=== PATIENT | male | born 1940 | race Caucasian/White ===

== ENCOUNTER → 2019-09-22 15:24 | Outpatient (BNVA) | payer MEDICARE, OTHER, SELFPAY | PROVIDERS: Family Provider Family Medicine; Visit Provider Orthopaedic Surgery | DX: M25.561 Pain in right knee (principal); M17.11 Unilateral primary osteoarthritis, right knee | CPT/HCPCS: 73560; 73565 ==

== ENCOUNTER → 2019-11-22 15:15 | Outpatient (BNVA) | payer MEDICARE, OTHER, SELFPAY | PROVIDERS: Family Provider Family Medicine; Referring Provider Orthopaedic Surgery; Visit Provider Internal Medicine | DX: Z11.59 Encounter for screening for other viral diseases (principal) | CPT/HCPCS: 87635 ==

== ENCOUNTER 2019-11-24 11:10 | Inpatient (IN) | payer MEDICARE, OTHER, SELFPAY ==
[2019-11-11 09:26] VITALS: BMI 26.4
--- NOTE | 2019-11-11 09:33 | ECG_ITS ---
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 Measurements Intervals [place] Rate: 68 P: 59 FL: 186 QRS: 14 QRSD: 101 T: 48 QT: 391 QTc: 418 Interpretive Statements SINUS RHYTHM No previous ECG available for comparison Electronically Signed On 11-12-2019 1:37:43 CDT by Tashia Luther M.D. [id number]
--- NOTE | 2019-11-11 10:13 | ANES.PREANE2 ---
Pre-Anesthetic Assessment Pre-Anesthetic Assessment: Height/Weight: Height 1.78 m Weight 83.461 kg Preop Diagnosis: Osteoarthritis right Proposed Procedure: Operation Date: 11/22/19 07:00 Proposed Procedures p Total Knee Arthroplasty/22973 M17.11(Right) - Dillon Martins MD Familial anesthetic complications: None Social: Social History: No alcohol and No tobacco Exam: Pre-Anes Outpt Exam: alert, oriented x 3, clear to auscultation bilaterally and regular rate & rhythm Airway: Cervical ROM: WNL MP: 3 Dentition: Other (missing teeth) Pulmonary: Pulmonary: None reported CV/HEM: CV/HEM: None reported : : None reported Hepatic: Hepatic: None reported GI: GI: None reported Metabolic: Metabolic: None reported Musc/skel: Musc/skel: OA/DJD Neuropsych: Neuropsych: None reported Anesthetic Plan: ASA status: 1 Anesthesia: General and Regional (specify below) Risk of > 500 ml blood loss (7ml/kg in children): Yes, adequate IV access and fluids planned Data Anesthesia Cardiac Studies: No Data to Display
[2019-11-24] VITALS (22 sets, daily range): BP systolic 109–154; BP diastolic 58–83; PULSE 65–113; RESP 10–20; TEMP 36.1–36.7; O2SAT 92–100
[2019-11-24] MEDS: sodium chloride 0.9% 1,000 ML 30 ML IV (06:41)
[2019-11-24] MEDS: midazolam 1 mg/mL INJ 5 ML 5 MG IVP (08:00)
[2019-11-24] MEDS: fentaNYL 50 mcg/mL INJ 2mL 100 MCG IVP (08:00)
--- NOTE | 2019-11-24 08:10 | W.PM.OPSUD ---
Surgery/Procedure H&P Update DATE OF PROCEDURE: November 24, 2019 DATE H&P PERFORMED: 10/26/19 PREOP DIAGNOSIS: Osteoarthritis right PLANNED PROCEDURE: Operation Date: 11/24/19 08:00 Proposed Procedures p Total Knee Arthroplasty/31513 M17.11(Right) - Dillon Martins MD
--- NOTE | 2019-11-24 08:30 | ANES.PROC ---
Anesthesia Procedures Procedure/Date: 11/24/19 Nerve Block ^: Nerve Block 1: Main Anesthesia: general anesthesia Time Out Performed: Yes Consent: requested by attending/covering physician, risks and benefits reviewed and patient agrees to proceed Nerve block location: adductor canal (right) Anesthesia monitors applied: pulse oximetry, EKG, BP cuff and oxygen Nerve block position: supine Anesthetic Used: ropivicaine 0.5% and with decadron (4mg) Amount of anesthesia used (mL): 30 Ultrasound used to: recognize landmarks Nerve Stimulator Used?: No Interscalene/Femoral BLK: 4 stimuplex 21 g needle used for position and inplane approach, visualize local anesthetic spread and no vascular puncture identified Injection: neg aspiration of heme Patient Tolerated Procedure: well and no complications Complications: none
[2019-11-24] MEDS: tranexamic acid 1,000 mg/10mL SDV 1000 MG IRRIGATION (09:25)
[2019-11-24] MEDS: ketorolac 30 mg/mL INJ IM (09:25)
[2019-11-24] MEDS: EPINEPHrine 1 mg/mL INJ XX (09:26)
--- NOTE | 2019-11-24 10:31 | XRR_ITS ---
PROCEDURE INFORMATION: Exam: XR Right Knee Exam date and time: 11/24/2019 10:43 AM Age: 79 years old Clinical indication: Condition or disease; Joint replacement status; Knee; Right; Prior surgery; Surgery date: Post-operative (0-2 days); Additional info: Postop right total knee arthroplasty TECHNIQUE: Imaging protocol: XR Right knee. Views: 1 or 2 views. COMPARISON: CR XR knees AP WB w RT lmt ORTH 09/22/2019 3:30 PM FINDINGS: Bones/joints: Status post total knee arthroplasty, in satisfactory alignment and position. Soft tissues: Postoperative changes. XR/XR knee RT 1-2V [id number] IMPRESSION: Status post total knee arthroplasty.
--- NOTE | 2019-11-24 10:33 | PM.OP ---
Operative Report Date of procedure: November 24, 2019 Pre-op Diagnosis: Osteoarthritis right Post-op diagnosis: same Post-op Findings: Same Procedure Done: Right total knee arthroplasty Implants: Filiberto total knee arthroplasty components were used includin) Size 4 triathalon cruciate retaining femoral component 2) Size 4 Tritanium tibial component 3) 35 mm /10 mm thickness Tritanium asymetric patella 4) Size 4/11mm thickness CR tibial bearing insert Pathology: none sent Surgeon: Dillon Martins Anesthesia: General and Nerve Block (Abductor canal block) Estimated blood loss (mL): 300 Findings: Patient eburnated bone over the medial femoral condyle, medial tibial plateau, patella and trochlea Condition: stable Disposition: PACU Procedure: The patient was taken to the operating room. Patient was given 1 g of tranexamic acid . The above anesthesia provided by the anesthesia service. A timeout was performed. The patient was prepped and draped in the usual fashion with the lower extremity exposed. A anterior incision was made, midline, from a point proximal to the patella to the distal tibial tubercle. The knee was entered through a medial parapatellar approach. The patella could be displaced laterally and the knee flexed. The patellar fat pad was resected to provide better visibility. Retractors were placed medially and laterally adjacent to the tibial plateau. The femoral canal was drilled in line with the longitudinal axis of the femur. Intramedullary femoral guide for used to make a distal femoral cut in 5 degrees of valgus, resecting 8 mm from the more prominent condyle. Next the extra medullary tibial guide was placed in alignment with the longitudinal axis of the tibia. The cutting guides were set to remove just over 9 mm from the high tibial plateau. The proximal tibia was then cut. The femoral measuring guide was then placed over the distal femur. Rotation was verified checking the relationship of the guide to the condyle and the trochlear groove. The femur was measured and cut for the desired femoral component. The desired tibial baseplate was then chosen. A trial reduction with the femur tibial baseplate and polyethylene was done, assuring that the knee was stable throughout full motion. Ligament balancing involved nothing more than a release of the deep medial collateral ligament.The tibia was prepared for the tibial baseplate. Patellar thickness was then measured. The patella was cut removing articular cartilage and prepared for appropriate size patellar button. All surfaces were cleaned with pulsatile lavage. The femur tibia and patella were then press-fit into place. The posterior capsule and collateral ligaments were then injected with a solution of 100 mL of 0.2% ropivacaine, 1 mL of a 1:1000 epinephrine solution, and 30 mg of Toradol. Final polyethylene component was then snapped into place into the tibia. 2 grams of tranexamic acid were applied to the wound. The tourniquet was deflated. The tranxanemic acid was left contact with the knee for 5 minutes before the knee was irrigated with saline. The extensor retinaculum was closed with 1 Ethibond. The subcutaneous tissues were closed with 2-0 Vicryl and the skin was closed with skin cory. A compressive dressing was applied. The patient was taken to recovery room in stable condition.
--- NOTE | 2019-11-24 10:43 | SUR.PHASEI ---
1043 PT HAS SENSATION/MOVEMENT IN R. FOOT, PEDAL PULSE PALPATED, CAP REFILL <3 SEC
[2019-11-24] MEDS: oxyCODONE 5 mg IR Tab/Cap PO ×3 (11:42→22:52)
[2019-11-24] MEDS: CELEcoxib 200 mg Capsule PO (13:16)
[2019-11-24] MEDS: chlorhexidine gluconate 0.12% Btl 473 mL 30 ML MUCOUS MEM ×3 (13:16→23:01)
--- NOTE | 2019-11-24 13:32 | P.PN_ITS ---
Subjective Subjective: Interval history: Patient with minimal pain. Tolerating p.o. liquids. Vitals/I&O/Wt Last Vital Signs Temp 97.0 F L 11/24/19 11:00 Pulse 94 11/24/19 13:11 Resp 16 11/24/19 13:11 BP 146/65 11/24/19 11:00 Pulse Ox 92 11/24/19 13:11 11/23/19 11/24/19 11/24/19 22:59 06:59 14:59 Intake Total 820 / 820 Output Total 800 / 800 Balance Physical Exam Narrative: EXAM NARRATIVE: Right knee dressing clean and dry. Perform straight leg raise peer Urinary Catheter Management^: F: Cath Placed During This Visit: yes Urinary Catheter Date of Insertion: 11/24/19 Urinary Catheter Time of Insertion: 08:50 A&P Assessment and plan (1) Osteoarthritis of right knee: Status: Acute (2) Status post right knee replacement: We will begin to mobilize the patient with therapy today. Anticipate discharge tomorrow. Status: Acute Attestations Medical Necessity Statement*: Will mobilize with therapy today. Anticipate discharge tomorrow. 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
[2019-11-24] MEDS: phenol oral Spray 177 mL 3 SPRAY MUCOUS MEM (17:31)
[2019-11-24] MEDS: cetylpyridinium Lozenge 1 EACH MUCOUS MEM (17:31)
[2019-11-24] MEDS: sennosides-docusate Tablet 2 TAB PO (17:32)
[2019-11-24] MEDS: mupirocin oint 22 gm 1 APPLIC NASAL (17:33)
--- NOTE | 2019-11-24 18:26 | ECG_ITS ---
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 Measurements Intervals [place] Rate: 113 P: 58 UT: 184 QRS: 19 QRSD: 110 T: 12 QT: 347 QTc: 477 Interpretive Statements SINUS TACHYCARDIA INFERIOR MYOCARDIAL INFARCTION [40+ ms Q WAVE AND/OR ST/T ABNORMALITY IN II/aVF], OF INDETERMINATE AGE Compared to ECG 11/11/2019 09:48:12 Myocardial infarct finding now present Sinus rhythm no longer present Electronically Signed On 11-25-2019 0:23:08 CDT by Tashia Luther M.D. [id number]
[2019-11-24] MEDS: enoxaparin 80 mg/0.8 mL Syringe SUBCUT (18:52)
[2019-11-24 19:01] LABS: Basophils % 0.1 %; Hematocrit 41.2 % (42.0-52.0); Hemoglobin 14.1 g/dL (11.7-16.6); Lymphocytes # 0.4 10^3/uL (0.8-4.8); Lymphocytes % 3.3 %; Mean Corpuscular HGB Conc 34.2 g/dL (30.0-36.0); Mean Corpuscular Hemoglobin 32.9 pg (28.0-34.0); Mean Corpuscular Volume 96.3 fL (80-94); Mean Platelet Volume 10.1 fL (7.4-10.4); Monocytes # 0.1 10^3/uL (0.2-0.9); Monocytes % 0.9 %; Neutrophils # 11.45 10^3/uL (1.8-7.7); Neutrophils % 95.4 %; Nucleated Red Blood Cells % 0 %; Platelet Count 179 10^3/cmm (130-400); Red Blood Count 4.28 10^6/uL (4.1-5.3); Red Cell Distribution Width 12.1 % (12.1-15.1)
--- NOTE | 2019-11-24 19:14 | CTR_ITS ---
PROCEDURE INFORMATION: Exam: CT Angiography Chest With Contrast Exam date and time: 11/24/2019 7:54 PM Age: 79 years old Clinical indication: Shortness of breath; Patient HX: Post of knee SX today; Additional info: SOB, R/O pe TECHNIQUE: Imaging protocol: Computed tomographic angiography of the chest with intravenous contrast. 3D rendering: MIP and/or 3D reconstructed images were created by the technologist. Radiation optimization: All CT scans at this facility use at least one of these dose optimization techniques: automated exposure control; mA and/or kV adjustment per patient size (includes targeted exams where dose is matched to clinical indication); or iterative reconstruction. Contrast material: OMNI 350; Contrast volume: 71 ml; Contrast route: INTRAVENOUS (IV); COMPARISON: CR Chest 1 [place] [id number] 05/11/2018 12:11 AM RADIATION DOSE METRICS: Total DLP (mGy-cm): 587.9 FINDINGS: Pulmonary arteries: Suboptimal contrast bolus in the smaller pulmonary artery branches. No filling defects identified within the central or lobar branches. Aorta: Unremarkable. No aortic aneurysm. No aortic dissection. 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 Lungs: Dependent consolidation in both lower lobes and lingula is most likely atelectasis. Pleural space: Unremarkable. No pneumothorax. No pleural effusion. Heart: Unremarkable. No cardiomegaly. No pericardial effusion. Lymph nodes: Subcentimeter mediastinal lymph nodes are most likely reactive. Calcified mediastinal and left hilar lymph nodes. Bones/joints: Unremarkable. No acute fracture. Soft tissues: Unremarkable. CT/CT angio chest PE protcl [id number] IMPRESSION: 1. No pulmonary emboli visualized in the large or medium-sized branches. The smaller artery branches are suboptimally opacified with contrast. 2. Dependent consolidation in both lower lobes is most likely atelectasis. 3. 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 Radiation Dose CTDIVOL = (mGy): DLP = 587.9 (mGy-cm)
[2019-11-24 19:15] LABS: Alanine Aminotransferase 19 U/L (0-41); Albumin Level 4.1 g/dL (3.5-5.2); Alkaline Phosphatase 44 IU/L (40-130); Anion Gap 18.9 (5-19); Aspartate Amino Transferase 20 U/L (0-40); Blood Urea Nitrogen 15 mg/dL (8-23); Calcium 8.7 mg/dL (8.5-10.5); Carbon Dioxide 18 mmol/L (22-29); Chloride 105 mmol/L (98-107); Globulin 2.3 g/dL (1.3-4.6); Glucose 212 mg/dL (65-115); Magnesium 1.8 mg/dL (1.7-2.3); Osmolality Calculated 289 mOsm/kg (285-295); Potassium 3.9 mmol/L (3.5-5.1); Sodium 138 mmol/L (136-145); Total Bilirubin 0.3 mg/dL (0.15-1.2); Total Protein 6.4 g/dL (6.6-8.7)
[2019-11-24 19:16] LABS: Troponin T (5th) Once 9 ng/L (0-15)
--- NOTE | 2019-11-24 19:18 | PM.CONSULT ---
Providers/Reason For Consult Consulting Physican/Specialty*: family medicine Reason for Consult*: chest pain Attending Physician: Dillon Martins MD Primary Care Provider: Paresh Holland History of Present Illness History of Present Illness Iron Naqvi is a 79 year old male who underwent right total knee replacement today for severe osteoarthritis. Surgery went well. Patient was doing well postoperatively. He was up ambulating without significant difficulty. He states that about 20 to 30 minutes ago he was eating supper when he noticed all of a sudden a band of tightness and pain through his lower chest. Also noticed some pain in his right arm and numbness in his right arm. He had some significant shortness of breath associated with this. He has not had any symptoms like this before. Patient was placed on oxygen per nasal cannula and had some relief. Patient states that currently he is feeling about 10 times better. Still having some shortness of breath but much better than before. He has no history of blood clots in the past. No cardiac history. Review of Systems Narrative: General: No chronic fevers or chronic weight changes. HEENT: No acute changes in vision. No acute hearing loss. No new difficulty swallowing. Heart: No new recent issues with coronary disease. Lungs: No history of TB. No chronic lung disease. GI: No history of GI bleeding. No hepatitis. No chronic nausea or vomitting. Renal: No dysuria or frequency. No hematuria Neuro: No acute neurological changes or deficits. Musculoskeletal: No acutely worsening joint pain or swelling. Meds/Allergies Home Medications and Allergies Home Medications Medication Instructions Recorded Confirmed Last Taken Type ascorbic acid (vitamin C) [Vitamin 500 mg PO DAILY 11/11/19 11/11/19 11/17/19 History C] aspirin 81 mg PO DAILY 11/11/19 11/11/19 11/17/19 History calcium carbonate [Calcium 600] 600 mg PO DAILY 11/11/19 11/11/19 11/17/19 History multivitamin 1 cap PO DAILY 11/11/19 11/11/19 11/17/19 History Allergies Allergy/AdvReac Type Severity Reaction Status Date / Time No Known Allergies Allergy Verified 11/11/19 09:25 Current Medications Current Medications Generic Name Dose Route Start Last Admin Trade Name Freq PRN Reason Stop Dose Admin Benzocaine 1 each 11/24/19 17:03 11/24/19 17:31 Cepacol MUCOUS MEM 1 each Q2H PRN Administration SORE THROAT Celecoxib 200 mg 11/24/19 13:30 11/24/19 13:16 Celebrex PO 200 mg Q12H LENORE Administration Chlorhexidine Gluconate 30 ml 11/24/19 13:00 11/24/19 17:35 Perigard MUCOUS MEM 30 ml QID LENORE Administration Enoxaparin Sodium 80 mg 11/24/19 18:45 11/24/19 18:52 Lovenox SUBCUT 80 mg Q12H LENORE Administration Cefazolin Sodium/Dextrose 2 gm in 50 mls @ 100 mls/hr 11/24/19 16:30 11/24/19 17:32 Kefzol IV 11/25/19 08:59 Infused Q8H LENORE Infusion Protocol Mupirocin 1 applic 11/24/19 18:00 11/24/19 17:33 Bactroban NASAL 11/29/19 17:59 1 applic BID LENORE Administration Protocol Oxycodone HCl 5 mg 11/24/19 11:20 11/24/19 16:35 Oxycodone Ir PO 5 mg Q4H PRN Administration MODERATE PAIN Phenol 3 spray 11/24/19 17:03 11/24/19 17:31 Phenaseptic MUCOUS MEM 3 spray Q2H PRN Administration SORE THROAT Senna/Docusate Sodium 2 tab 11/24/19 18:00 11/24/19 17:32 Senna-S PO 2 tab BID LENORE Administration PFSH Acute PFSH: Medical History (Updated 11/24/19 @ 20:22 by Paresh Holland MD) 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 Surgical History (Updated 11/24/19 @ 20:22 by Paresh Holland MD) History of total left knee replacement (TKR) Family History (Updated 11/24/19 @ 20:24 by Paresh Holland MD) Father CAD (coronary artery disease) Social History (Updated 11/24/19 @ 20:26 by Paresh Holland MD) Smoking and tobacco status: former smoker Alcohol intake: never Marital status: Current occupation: [employer] Vitals/I&O/Wt Last Vital Signs Temp 97.9 F 11/24/19 17:47 Pulse 113 H 11/24/19 18:26 Resp 16 11/24/19 17:47 BP 116/65 11/24/19 17:47 Pulse Ox 93 11/24/19 17:47 11/24/19 11/24/19 11/24/19 06:59 14:59 22:59 Intake Total 820 / 870 50 / 870 Output Total 800 / 1200 400 / 1200 Balance 20 / -330 -350 / -330 Physical Exam Narrative: EXAM NARRATIVE: General: No acute distress, Alert. Well nourished. HEENT: PERRLA, EOMI. vision grossly normal. Throat clear. Neck: supple, no adenopathy. Heart: Regular rate and rhythm. No murmurs, rubs or gallops. Normal capillary refill. Lungs: Clear to auscultation. No wheezes, rhonchi or rales. Patient states that he had been doing 3-4000 on his incentive spirometry. I had him go ahead and use it again and he was struggling to get 2500. Abdomen: Positive bowel sounds. Non-tender, non-distended. No hepatosplenomegaly. No gaurding. Extremities: No clubbing, cyanosis, or edema. Negative Bo's no pain in his calves to palpation. Urinary Catheter Management^: F: Cath Placed During This Visit: yes Urinary Catheter Date of Insertion: 11/24/19 Urinary Catheter Time of Insertion: 08:50 A&P Assessment and plan (1) Chest pain: -Patient has sudden onset of chest pain and hypoxia this evening. Most likely things in his differential are pulmonary embolism versus an acute myocardial infarction. EKG does show some ST segment depressions. However, his clinical picture favors more of a pulmonary embolism. He has tachycardia and chest pain and dyspnea consistent with this. He also has some hypoxia and decreased incentive spirometry. Doing better on a couple liters of oxygen. -At this time we will go ahead and proceed with a CTA of the chest. He is received Lovenox therapeutic dosing. We will also give him a full dose aspirin. Have respiratory therapy to assess and treat. Continue with oxygen. If his condition deteriorates or the CTA shows a significant PE we will transfer him to the ICU for closer monitoring. We are getting a stat troponin and if this is positive we will consult cardiology. Status: Acute (2) Hypoxia: Status: Acute (3) Status post right knee replacement: Status: Acute (4) Osteoarthritis of right knee: Status: Acute Consult Attestations Medical Necessity Statement: 79 yo with chest pain requiring continued inpatient treatment. 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
--- NOTE | 2019-11-24 19:32 | PC.NURSE ---
Summary At 1825 pt c/o of right to left chest pain with pain in right arm with pain at a 7-8. VS was 118Hr 95%on RA, B/P was 143/75.Tried calling Dr Martins whose is the admitting Dr but was unable to get ahold of him, so I left a message. I called the Ortho. Dr automotive fuel systems converter, Dr Monteiro, who had me order stat EKG and consult hospitalist automotive fuel systems converter. I called Dr Interiano who came to the floor and told me the patient was Dr Nowak. I called Dr Holland the info regarding the pt and that we were getting a EKG at this time. He had me call him with results and in the mean time Dr Interiano thought possible PE. Dr Holland said he was coming over to see Pt and order lab Trop stat. Jaydon had Charge nurse Herman put some orders in and meds. Dr Holland saw Pt and talked with him and his .
[2019-11-24] MEDS: aspirin 81 mg Chew Tablet 324 MG PO (20:05)
[2019-11-24] MEDS: iohexol 350 mg/mL 100 mL Btl IV (20:18)
[2019-11-24 21:04] LABS: Troponin 5 2HR 10.57 ng/L (0-15)
[2019-11-24 21:12] LABS: Troponin 5 2HR Delta 1.57 ABS# (0-10)
--- NOTE | 2019-11-24 22:18 | ECG_ITS ---
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 Measurements Intervals [place] Rate: 108 P: 53 MN: 185 QRS: 22 QRSD: 103 T: 38 QT: 351 QTc: 471 Interpretive Statements SINUS TACHYCARDIA ABNORMAL RHYTHM ECG Compared to ECG 11/24/2019 19:27:49 Myocardial infarct finding no longer present Electronically Signed On 11-25-2019 0:30:49 CDT by Tashia Luther M.D. [email or web address].Symphogenpatient's choice medical center of smith countyApplication Developments plcblanchard valley health system bluffton hospitalSabrix/store/OM/[id number]
[2019-11-24] MEDS: nitroglycerin 0.4 mg sublingual Tablet SUBLINGUAL (22:52)
[2019-11-25] VITALS (10 sets, daily range): BP systolic 97–147; BP diastolic 57–73; PULSE 73–108; RESP 16–23; TEMP 36.3–37.2; O2SAT 90–96
--- NOTE | 2019-11-25 00:51 | PC.NURSE ---
Pt complained of chest pain, MD aware of this, administered oxycodone IR and nitro sublingual, one nitro resolved chest pain, morphine was offered in place of oxy IR, but patient refused due to fear of the med, no other complaints voiced at this time, will continue to monitor.
[2019-11-25 01:24] LABS: Troponin 5 6HR 15.23 ng/L (0-15)
[2019-11-25] MEDS: sodium chloride 0.9% 1,000 ML 80 ML IV (01:33)
[2019-11-25] MEDS: CELEcoxib 200 mg Capsule PO ×2 (01:34→13:30)
--- NOTE | 2019-11-25 01:51 | PC.NURSE ---
Educated Pt and on importance of using his incentive spirometer, how to use it properly and the frequency of when to use it. RN also educated Pt on being able to ambulate to prevent pneumonia.
[2019-11-25 02:01] LABS: Troponin 5 6HR Delta 6.23 ng/L (0-12)
--- NOTE | 2019-11-25 02:18 | ECG_ITS ---
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 Measurements Intervals [place] Rate: 81 P: 57 VA: 189 QRS: 21 QRSD: 95 T: 53 QT: 378 QTc: 440 Interpretive Statements SINUS RHYTHM Compared to ECG 11/24/2019 22:29:33 Sinus tachycardia no longer present Electronically Signed On 11-26-2019 16:07:38 CDT by Leroy Yoder M.D. [email or web address] GroupSayHello [email or web address] general [email or web address] center.itzat/store/OM/[id number]
[2019-11-25] MEDS: oxyCODONE 5 mg IR Tab/Cap PO ×3 (03:05→17:24)
[2019-11-25 03:43] LABS: Hemoglobin 12.2 g/dL (11.7-16.6)
--- NOTE | 2019-11-25 06:36 | US_ITS ---
WS: [id number] ULTRASOUND RENAL TECHNIQUE: Ultrasound examination of both kidneys. CLINICAL INFORMATION: hematuria COMPARISON: None. FINDINGS: RIGHT: Right kidney is normal in size and appearance. Echogenicity: Normal. Cortical thickness: 1.1 cm; Normal. Hydronephrosis: None. Perinephric fluid: None. Right kidney measures: 10.0 cm x 4.6 cm x 5.3 cm. LEFT: Left kidney is normal in size and appearance. Echogenicity: Normal. Cortical thickness: 1.2 cm; Normal. Hydronephrosis: None. Perinephric fluid: None. Left kidney measures: 10.7 cm x 4.2 cm x 5.6 cm. Normal visualized aorta. Nodular enlarged prostate with diffuse bladder wall thickening. This can be seen with chronic cystitis or bladder outlet obstruction. Prostate measures 3.3 x 3.3 CM. US/US renal BI with bladder IMPRESSION: 1. No hydronephrosis in either kidney. 2. Bladder appears normal. Haro removed. 3. Enlarged nodular prostate measuring 3.3 x 3.3 cm. Recommend correlation PSA . 4. Diffuse bladder wall thickening can be seen with chronic cystitis or bladde r outlet obstruction.
--- NOTE | 2019-11-25 06:37 | USCV_ITS ---
Iron Naqvi Age: 79 Gender: M : 1940 Exam Date: 11/25/2019 07:36 Ordering Phys: Paresh Holland MD Technologist: Oracio Shannon Exam Location: [facility] [place] Indication: MURMUR, chest pain BP: 126 / 76 HR: 79 Rhythm: Sinus Technical Quality: Adequate MEASUREMENTS (Male / Female) Normal Values 2D ECHO LV Diastolic Diameter PLAX 4.9 cm 4.2 - 5.9 / 3.9 - 5.3 cm LV Systolic Diameter PLAX 2.8 cm IVS Diastolic Thickness 1.1 cm 0.6 - 1.0 / 0.6 - 0.9 cm IVS Systolic Thickness 1.3 cm LVPW Diastolic Thickness 1.0 cm 0.6 - 1.0 / 0.6 - 0.9 cm LVPW Systolic Thickness 1.4 cm LVOT Diameter 2.0 cm LV Ejection Fraction 2D Teich 74.1 % LV Ejection Fraction MOD 2C 67.3 % LV Ejection Fraction 2C AL 67.9 % LA Diameter 4.4 cm LA Width 3.8 cm LA Height 4.3 cm RA Width 3.1 cm RA Height 3.7 cm M-MODE LV Diastolic Diameter MM 5.6 cm 4.2 - 5.9 / 3.9 - 5.3 cm LV Systolic Diameter MM 3.5 cm LV Ejection Fraction MM Teich 67.5 % IVS Diastolic Thickness MM 1.0 cm 0.6 - 1.0 / 0.6 - 0.9 cm IVS Systolic Thickness MM 1.5 cm LVPW Diastolic Thickness MM 1.2 cm 0.6 - 1.0 / 0.6 - 0.9 cm LVPW Systolic Thickness MM 1.5 cm RV Diastolic Diameter MM 1.1 cm Aortic Annulus Diameter 3.6 cm LA Ao Ratio MM 1.2 MV E Point Septal Separation 0.8 cm DOPPLER AV Peak Velocity 263.0 cm/s MV Area PHT 5.0 cm squared Mitral E to A Ratio 1.0 MV E' Velocity 81.0 cm/s TR Peak Velocity 209.0 cm/s TR Peak Gradient 17.5 mmHg TV Peak E Velocity 109.0 cm/s Right Atrial Pressure 3.0 mmHg Pulmonary Artery Systolic Pressu 20.5 mmHg PV Peak Velocity 125.0 cm/s FINDINGS Left Ventricle Normal left ventricular cavity size. There is possibly some basal septal hypertrophy normal left ventricular systolic function. Left ventricular ejection fraction is estimated at 65%. No regional wall motion abnormalities. Normal mitral inflow pattern. Right Ventricle Normal right ventricular size and systolic function. Right ventricular systolic pressure 20.5 mmHg. Right Atrium Normal right atrial size. Left Atrium Normal left atrial size. Mitral Valve There is systolic anterior motion of anterior mitral valve leaflet with eccentric posteriorly directed mild to moderate mitral valve regurgitation. No mitral valve stenosis. Aortic Valve Structurally normal trileaflet aortic valve. No aortic valve stenosis. Peak resting left ventricular outflow tract gradient of 28 mmHg. Trace aortic valve regurgitation. Tricuspid Valve Structurally normal tricuspid valve. Trace tricuspid valve regurgitation. Pulmonic Valve Structurally normal pulmonic valve. No pulmonary valve stenosis. Trace pulmonary valve regurgitation. Pericardium No pericardial effusion. Aorta Normal-sized aortic root. CONCLUSIONS 1. Normal left ventricular cavity size. There is possibly some basal septal hypertrophy. Normal left ventricular systolic function. Left ventricular ejection fraction is estimated at 65%. No regional wall motion abnormalities. Normal mitral inflow pattern. 2. There is systolic anterior motion of anterior mitral valve leaflet with eccentric posteriorly directed mild to moderate mitral valve regurgitation. 3. Peak resting left ventricular outflow tract gradient of 28 mmHg. 4. Normal pulmonary artery pressure. 5. No prior similar studies to compare. Carmen Krishna MD (Electronically Signed) Final Date: 25 November 2019 13:21 S
--- NOTE | 2019-11-25 06:42 | P.PN_ITS ---
Subjective Subjective: Interval history: Patient seems of done well overnight. He is not had any more significant chest pain. He still somewhat hypoxic requiring 2 L of oxygen. Still bit short of breath. No fevers or chills. No cough. No significant sputum. Vitals/I&O/Wt Last Vital Signs Temp 97.4 F L 11/25/19 04:00 Pulse 86 11/25/19 04:00 Resp 18 11/25/19 04:00 BP 120/62 11/25/19 04:00 Pulse Ox 90 11/25/19 04:00 11/24/19 11/24/19 11/25/19 14:59 22:59 06:59 Intake Total 820 / 870 50 / 870 Output Total 800 / 1700 400 / 1700 500 / 1700 Balance 20 / -830 -350 / -830 -500 / -830 Physical Exam Narrative: EXAM NARRATIVE: General: No acute distress, Alert. Well nourished. Heart: Regular rate and rhythm. No murmurs, rubs or gallops. Normal capillary refill. Lungs: Clear to auscultation. No wheezes, rhonchi or rales. Abdomen: Positive bowel sounds. Non-tender, non-distended. No hepatosplenomegaly. No gaurding. Extremities: No clubbing, cyanosis, or edema. Negative Bo's Urinary Catheter Management^: F: Cath Placed During This Visit: yes Urinary Catheter Date of Insertion: 11/24/19 Urinary Catheter Time of Insertion: 08:50 Data : 11/25/19 03:02 11/24/19 18:54 A&P Assessment and plan (1) Hypoxia: Etiology for this is still little unclear. It was acute on onset. CTA was negative for PE but was not able to see the smaller vessels very clearly. I will plan to review the CTA with radiology later today. This time he does seem stable. He does have atelectasis which we will continue working on incentive spirometry for. I cannot see this being the cause of his acute decompensation. Status: Acute (2) Chest pain: Still unclear on the etiology of this as well. Small PE still in the differential. Troponins have technically been negative. And his repeat EKGs have normalized. He did have some upsloping ST depression on his initial EKG. We will get a repeat fourth troponin this morning. Go ahead and proceed with echocardiogram. Plan to consult cardiology this morning. 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 This episode of chest pain did happen after he was eating. Possible that that may be the cause of his chest pain. It is hard for me to explain his hypoxia and shortness of breath from this though. Status: Acute (3) Hematuria: This most likely was precipitated by the high dose of Lovenox. We will go ahead and get an ultrasound of the kidneys and bladder to rule out other pathology. This seems to be clearing some this morning. I am okay with removing catheter this morning if okay with Ortho. 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 Status: Acute (5) Status post right knee replacement: Status: Acute Additional A&P Information Doing well from this standpoint. Postoperative care per Ortho. Attestations Medical Necessity Statement*: Patient is 79-year-old gentleman postop day #1 for total knee replacement with chest pain and hypoxia requiring continued monitoring and inpatient testing and treatment. 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
[2019-11-25 07:23] LABS: Basophils % 0.1 %; Hematocrit 34.7 % (42.0-52.0); Hemoglobin 11.9 g/dL (11.7-16.6); Lymphocytes % 6.7 %; Mean Corpuscular HGB Conc 34.3 g/dL (30.0-36.0); Mean Corpuscular Hemoglobin 33.1 pg (28.0-34.0); Mean Corpuscular Volume 96.4 fL (80-94); Monocytes # 1.1 10^3/uL (0.2-0.9); Monocytes % 7.5 %; Neutrophils # 12.95 10^3/uL (1.8-7.7); Neutrophils % 85.2 %; Nucleated Red Blood Cells % 0 %; Platelet Count 152 10^3/cmm (130-400); Red Cell Distribution Width 12.2 % (12.1-15.1); White Blood Count 15.2 10^3/uL (4.0-10.0)
[2019-11-25 07:42] LABS: Alanine Aminotransferase 15 U/L (0-41); Albumin Level 3.5 g/dL (3.5-5.2); Alkaline Phosphatase 42 IU/L (40-130); Anion Gap 12.3 (5-19); Aspartate Amino Transferase 17 U/L (0-40); Blood Urea Nitrogen 16 mg/dL (8-23); Calcium 8.2 mg/dL (8.5-10.5); Carbon Dioxide 21 mmol/L (22-29); Chloride 107 mmol/L (98-107); Glucose 151 mg/dL (65-115); Lipase 16 U/L (13-60); Osmolality Calculated 281 mOsm/kg (285-295); Potassium 4.3 mmol/L (3.5-5.1); Sodium 136 mmol/L (136-145); Total Bilirubin 0.2 mg/dL (0.15-1.2); Total Protein 5.5 g/dL (6.6-8.7)
[2019-11-25 07:43] LABS: Troponin T (5th) Once 18 ng/L (0-15)
--- NOTE | 2019-11-25 08:00 | PM.PN ---
Subjective Subjective: Interval history: Patient feels better this morning. No further chest pain. Shortness of breath improved. Vitals/I&O/Wt Last Vital Signs Temp 97.4 F L 11/25/19 04:00 Pulse 86 11/25/19 04:00 Resp 18 11/25/19 04:00 BP 120/62 11/25/19 04:00 Pulse Ox 90 11/25/19 04:00 11/24/19 11/25/19 11/25/19 22:59 06:59 14:59 Intake Total 50 / 870 50 / 920 Output Total 400 / 1200 500 / 1700 Balance -350 / -330 -450 / -780 Physical Exam Narrative: EXAM NARRATIVE: Right knee dressing clean and dry. Calves soft. Urinary Catheter Management^: F: Cath Placed During This Visit: yes Urinary Catheter Date of Insertion: 11/24/19 Urinary Catheter Time of Insertion: 08:50 Data : 11/25/19 07:11 11/25/19 07:11 A&P Assessment and plan (1) Status post right knee replacement: Status: Acute Additional A&P Information Patient doing much better. We will continue to mobilize with therapy. We will wait for final medical disposition before considering discharge Attestations Medical Necessity Statement*: Discharge as per medicine Coding Level of Care Code Acute Residential Nurse for Ann Ledezma Diagnoses Status post right knee replacement Z96.651
--- NOTE | 2019-11-25 08:01 | PM.CONSULT ---
Providers/Reason For Consult Consulting Physican/Specialty*: Dr. Krishna, Cardiology Reason for Consult*: Lower chest pain Attending Physician: Dillon Martins MD Primary Care Provider: LEX Reynaga History of Present Illness History of Present Illness Iron Naqvi is a 79 year old male with no significant medical problems and not on any medications. He underwent elective right total knee replacement yesterday for severe osteoarthritis without any problems in immediate post op period. Patient was doing well postoperatively. Around quarter to six, he was eating supper when he starting having sudden onset lower chest/ upper abdominal pain described as a band of tightness . He also noticed some pain in his right arm and numbness in his right arm. This episode was associated with shortness of breath. This episode lasted for about 10 minutes and and then another episode though less intense while eating ice cream and drinking milk at night and this episode was focussed more . He has not had any symptoms like this before. Patient was placed on oxygen per nasal cannula and had some relief. He is currently feeling much better. No PE on CT scan of chest. He is former smoker quit more than 40 years back. 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 His was at bedside at the time. Review of Systems Const: Denies: fever(s), chills, change in appetite, change in weight, fatigue or malaise ENMT: Denies: throat pain, nasal congestion, epistaxis or post nasal drip Card: Denies: palpitations, irregular heart rhythm, edema, lightheadedness, syncope, dyspnea on exertion, orthopnea or leg pain with exertion Resp: Denies: productive cough, wheezing or hemoptysis GI: Denies: abdominal pain, nausea, vomiting, hematemesis, heartburn, diarrhea, constipation, change in bowel habits, hematochezia or melena : Denies: dysuria, oliguria or hematuria Musc: Denies: extremity swelling Skin/Breast: Denies: rash or erythema Neuro: Denies: numbness in extremities, weakness in extremities, lack of coordination, difficulty walking, dizziness, vertigo or confusion Psych: Denies: anxiety, depression or irritability Endo: Denies: tired all the time, cold intolerance or heat intolerance Joshua/Lymph: Denies: easy bruising, easy bleeding, petechiae or purpura Meds/Allergies Home Medications and Allergies Home Medications Medication Instructions Recorded Confirmed Last Taken Type ascorbic acid (vitamin C) [Vitamin 500 mg PO DAILY 11/11/19 11/11/19 11/17/19 History C] aspirin 81 mg PO DAILY 11/11/19 11/11/19 11/17/19 History calcium carbonate [Calcium 600] 600 mg PO DAILY 11/11/19 11/11/19 11/17/19 History multivitamin 1 cap PO DAILY 11/11/19 11/11/19 11/17/19 History Allergies Allergy/AdvReac Type Severity Reaction Status Date / Time No Known Allergies Allergy Verified 11/11/19 09:25 Current Medications Current Medications Generic Name Dose Route Start Last Admin Trade Name Freq PRN Reason Stop Dose Admin Benzocaine 1 each 11/24/19 17:03 11/24/19 17:31 Cepacol MUCOUS MEM 1 each Q2H PRN Administration SORE THROAT Celecoxib 200 mg 11/24/19 13:30 11/25/19 01:34 Celebrex PO 200 mg Q12H LENORE Administration Chlorhexidine Gluconate 30 ml 11/24/19 13:00 11/24/19 23:01 Perigard MUCOUS MEM 30 ml QID LENORE Administration Enoxaparin Sodium 80 mg 11/24/19 18:45 11/24/19 18:52 Lovenox SUBCUT 80 mg Q12H LENORE Administration Sodium Chloride 1,000 mls @ 80 mls/hr 11/24/19 11:20 11/25/19 01:33 Sodium Chloride 0.9% IV 80 mls/hr .[id number] LENORE Administration Cefazolin Sodium/Dextrose 2 gm in 50 mls @ 100 mls/hr 11/24/19 16:30 11/25/19 02:03 Kefzol IV 11/25/19 08:59 Infused Q8H LENORE Infusion Protocol Mupirocin 1 applic 11/24/19 18:00 11/24/19 17:33 Bactroban NASAL 11/29/19 17:59 1 applic BID LENORE Administration Protocol Nitroglycerin 0.4 mg 11/24/19 22:33 11/24/19 22:52 Nitrostat SUBLINGUAL 1 tab Q5M PRN Administration CHEST PAIN Oxycodone HCl 5 mg 11/24/19 11:20 11/25/19 03:05 Oxycodone Ir PO 5 mg Q4H PRN Administration MODERATE PAIN Phenol 3 spray 11/24/19 17:03 11/24/19 17:31 Phenaseptic MUCOUS MEM 3 spray Q2H PRN Administration SORE THROAT Senna/Docusate Sodium 2 tab 11/24/19 18:00 11/24/19 17:32 Senna-S PO 2 tab BID LENORE Administration PFSH Acute PFSH: Medical History (Updated 11/25/19 @ 21:03 by Carmen Krishna MD) 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 Surgical History (Updated 11/24/19 @ 20:22 by Paresh Holland MD) History of total left knee replacement (TKR) Family History (Updated 11/24/19 @ 20:24 by Paresh Holland MD) Father CAD (coronary artery disease) Social History (Updated 11/24/19 @ 20:26 by Paresh Holland MD) Smoking and tobacco status: former smoker Alcohol intake: never Marital status: Current occupation: [employer] Vitals/I&O/Wt Last Vital Signs Temp 97.4 F L 11/25/19 04:00 Pulse 86 11/25/19 04:00 Resp 18 11/25/19 04:00 BP 120/62 11/25/19 04:00 Pulse Ox 90 11/25/19 04:00 11/24/19 11/25/19 11/25/19 22:59 06:59 14:59 Intake Total 50 / 870 50 / 920 Output Total 400 / 1200 500 / 1700 Balance -350 / -330 -450 / -780 Physical Exam Const: COMMON NORMALS: no acute distress, average body habitus, patient oriented x3, alert and well nourished GENERAL APPEARANCE: cooperative, comfortable, well kempt and well developed ORIENTATION/CONSCIOUSNESS: Yes oriented to person, Yes oriented to place and Yes oriented to time HENMT: COMMON NORMALS: normocephalic, atraumatic, hearing grossly normal bilaterally and Normal external nose present HEAD & SCALP: normocephalic and atraumatic FACE & SINUS: face symmetric NOSE: Normal external nose present Eye: COMMON NORMALS: Equal, round and reactive pupils present, EOMs intact bilaterally and conjunctivae normal ALIGNMENT: Yes alignment normal CONJUNCTIVA: Yes conjunctivae normal SCLERA: sclerae normal PUPIL: Yes Equal, round and reactive pupils present Neck/C-Spine: COMMON NORMALS: supple and no JVD; negative for No carotid bruits GENERAL: Yes trachea midline Chest: COMMONS NORMALS: normal inspection of the chest CHEST: Yes Symmetrical chest wall rise and No tenderness Resp: COMMON NORMALS: normal respiratory effort, No use of accessory muscles and clear to auscultation bilaterally AUSCULTATION: clear to auscultation bilaterally, no crackles, no rales, no rhonchi and no wheezes Cardio: COMMON NORMALS: no JVD, regular rate, regular rhythm, S1 normal heart sound present, S2 normal heart sound present and Peripheral pulses 2+ throughout; negative for No gallops present (Cardio) JUGULAR VENOUS DISTENTION: no JVD PALPATION: normal PMI, no heave, no palpable S3 and no thrill RATE: regular rate RHYTHM: regular rhythm HEART SOUNDS: S1 normal heart sound present, S2 normal heart sound present, no gallops and no murmurs BRUITS: no carotid bruits PERIPHERAL PULSES: Peripheral pulses 2+ throughout GI: COMMON NORMALS: Normal to inspection, nondistended, normoactive bowel sounds present, Soft to palpation and non-tender PALPATION: Yes Soft to palpation RECTAL EXAM: Yes deferred Extremity: COMMON NORMALS: no pedal edema NARRATIVE EXTREMITY EXAM: Right knee dressing+, left knee incision of previous Sx Neuro: COMMON NORMALS: patient oriented x3 and no focal motor deficits SENSORIUM/ORIENTATION: Yes alert, Yes oriented to person, Yes oriented to place and Yes oriented to time CRANIAL NERVES: Yes CN normal except as noted Psych: COMMON NORMALS: Normal thought process present APPEARANCE: Yes well kempt MOOD & AFFECT: Yes euthymic mood THOUGHT PROCESS: Normal thought process present THOUGHT CONTENT: Yes Normal thought content present ATTENTION/CONCENTRATION: Yes attention grossly intact MEMORY/COGNITION: Yes memory grossly intact INSIGHT: Good insight present (Psych) JUDGEMENT: Good judgement present (Psych) Urinary Catheter Management^: F: Cath Placed During This Visit: yes Urinary Catheter Date of Insertion: 11/24/19 Urinary Catheter Time of Insertion: 08:50 Data Labs: Other Labs: Laboratory Tests 11/24/19 11/24/19 11/24/19 18:54 18:54 20:42 Magnesium 1.8 Troponin T Gen 5 n g/L 9 Troponin T 120 Min [place] 10.57 Troponin T Hi Sens 6Hr 11/25/19 11/25/19 00:45 07:11 Magnesium Troponin T Gen 5 n g/L 18 H Troponin T 120 Min [place] Troponin T Hi Sens 6Hr 15.23 H Imaging^: Echo: I personally reviewed and interpreted this imaging study as follows: My impression: CONCLUSIONS 1. Normal left ventricular cavity size. There is possibly some basal septal hypertrophy. Normal left ventricular systolic function. Left ventricular ejection fraction is estimated at 65%. No regional wall motion abnormalities. Normal mitral inflow pattern. 2. There is systolic anterior motion of anterior mitral valve leaflet with eccentric posteriorly directed mild to moderate mitral valve regurgitation. 3. Peak resting left ventricular outflow tract gradient of 28 mmHg. 4. Normal pulmonary artery pressure. 5. No prior similar studies to compare. Other Imaging: Radiologist's impression: Renal ultrasound IMPRESSION: 1. No hydronephrosis in either kidney. 2. Bladder appears normal. Haro removed. 3. Enlarged nodular prostate measuring 3.3 x 3.3 cm. Recommend correlation PSA. 4. Diffuse bladder wall thickening can be seen with chronic cystitis or bladder outlet obstruction. CTA chest IMPRESSION: 1. No pulmonary emboli visualized in the large or medium-sized branches. The smaller artery branches are suboptimally opacified with contrast. 2. Dependent consolidation in both lower lobes is most likely atelectasis. 3. 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 EKG^: EKG 1: I personally reviewed and interpreted this EKG as follows: My Interpretation: Sinus tachycardia, q wave in III and aVF with T wave inversion in lead III. New as compared to old EKG. These changes resolve on serial EKG's. A&P Assessment and plan (1) Chest pain: Lower Chest pain/upper abdominal pain -CAD risk factor of age and sex. No prior stress test. -Plan for stress test in morning. 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 I am not sure if this would cause sudden onset post prandial pain. Status: Acute Additional A&P Information Mild to moderate eccentric posterior MR Thank you for allowing me to participate in patient's care. Plaese feel free to call with questions or concerns. 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
[2019-11-25] MEDS: ascorbic acid 500 mg Tablet PO (08:05)
[2019-11-25] MEDS: sennosides-docusate Tablet 2 TAB PO ×2 (08:05→17:24)
[2019-11-25] MEDS: chlorhexidine gluconate 0.12% Btl 473 mL 30 ML MUCOUS MEM ×4 (08:06→20:43)
[2019-11-25] MEDS: mupirocin oint 22 gm 1 APPLIC NASAL ×2 (08:06→17:26)
[2019-11-25] MEDS: aspirin 81 mg Chew Tablet PO (08:06)
--- NOTE | 2019-11-25 09:19 | ANE.PACU2 ---
Inpatient post-anesthesia follow up: Airway intact: Yes Vital signs: Temperature 97.6 F Pulse Rate 73 Respiratory Rate 18 Blood Pressure 146/67 Pulse Oximetry 93 Oxygen Delivery Me thod Nasal Cannula Oxygen Flow Rate 2 Fraction of Inspir ed Oxygen Hydration adequate: Yes Nausea and vomiting: No Pain level: 7 Pain level: increased pain after having walked around, otherwise pain scores 1-2 Mental status: Baseline
--- NOTE | 2019-11-25 11:10 | PC.CHAP ---
Pastoral Care Encounter/Spiritual Assessment Type of Contact [] Declined trading analyst visit [] Patient/Family/Request visit [] Outpatient visit [] Follow-up visit [] Physician referral [] Code/Alert [x] Routine visit [] Staff referral [] Actively dying [] Patient sleeping [] Family support [] [] Out of room [] Palliative care [] [] Receiving care in room [] Pre-surgical visit [] Trauma [] Long length of stay [] ICU visit [] Other: Relational/Emotional Strength [x] Patient feels connected with others/family/visitors/staff [] Distress [] Loneliness/isolation [] Abandonment Spirituality of Patient [x] Person of Kala [x] Attends Mosque of their Kala [x] Believes in Prayer [x] Reads Bible or Gnosticist materials [] There are Spiritual issues to be addressed Energy Trader Interventions [x] Prayer [x] Active listening [x] Non-anxious presence [x] Spiritual/emotional support [] Crisis/trauma care [] Spiritual counseling [] Bereavement support [] Provided bereavement packet [] Provided Bible/devotional materials [] Provided toy/stuffed animal, coloring book to patient or family member [] Provided Communion [] Anointing/[place] [] Salvation [x] Completed spiritual assessment [] Other: Impact on Illness or Injury [] Angry [] Fearful [] Anxious [] Often cries [] Exhaustion [] Unable to work [] Unable to attend uatsdin [] Unable to walk/stand [] Unable to read [] Unable to drive [] Unable to eat/drink [] Unable to sleep [] Unable to be with family [] Patient intubated [x] Other: Summary Patient was in attendance with his Shyann. 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 Time spent with patient 10 minutes
--- NOTE | 2019-11-25 13:35 | USCV_ITS ---
Iron Naqvi Age: 79 Gender: M : 1940 Exam Date: 11/25/2019 14:21 Ordering Phys: Paresh Holland MD Technologist: Aparna Alfonso Exam Location: [facility] [place] Indication: POSSIBLE PE HISTORY: Pulmonary embolism. PROCEDURES: Venous duplex imaging was performed in bilateral lower extremities. The following venous structures were evaluated: common femoral vein, profunda vein, proximal portion of the greater saphenous vein, superficial femoral vein, and the popliteal vein. In addition, the posterior tibial and peroneal trunk were evaluated. Serial compression, augmentation maneuvers, and spectral Doppler flow evaluation were performed. FINDINGS: Normal 2-D Doppler and augmentation and compressibility throughout the lower extremity venous structures. Additional imaging through the proximal calf veins also reveals no thrombus. Limited evaluation of the greater saphenous vein is patent with no thrombus.. CONCLUSIONS No evidence of right lower extremity DVT. No evidence of left lower extremity DVT. Khalif Dalton MD (Electronically Signed) Final Date: 25 November 2019 16:32 S
--- NOTE | 2019-11-25 13:54 | ECG_ITS ---
[facility] Test Date: 2019-11-26 Pat Name: Iron Naqvi Department: Room: 264 Gender: Male Residential Treatment Specialist: : 1940 Requested By: Paresh Vigil Order Number: [id number] Solis MD: Tashia Luther M.D. Interpretive Statements NAME OF STUDY: LEXISCAN SESTAMIBI STRESS TEST INDICATION: Chest Pain PROCEDURE: At the baseline, the EKG revealed normal sinus rhythm with a normal ST-T's.. The baseline blood pressure was 146/67 mm Hg with a heart rate of 66 beats/min. Lexiscan was infused over a period of 20 seconds. A total of 0.4 milligrams of Lexiscan was infused. The stress phase was continued for a total of 5 minutes. Heart rate at the end of the stress phase was 71 with a blood pressure 182/75. The EKG at the peak infusion revealed no significant changes. Sestamibi was injected 20 seconds after the Lexiscan infusion. Blood pressure at the end of the recovery phase was 164/76 with a heart rate of 69 per minute. CONCLUSION: 1. No significant EKG changes with the LexiScan infusion 2. No LexiScan induced chest pain or cardiac arrhythmia 3. Normal blood pressure and heart rate response 4. Sestamibi/sestamibi perfusion scan pending; see separate report. Electronically Signed On 11-27-2019 12:43:41 CDT by Tashia Luther M.D. [email or web address]
[2019-11-25] MEDS: enoxaparin 40 mg/0.4 mL Syringe SUBCUT (17:25)
--- NOTE | 2019-11-25 18:31 | PC.NURSE ---
SHIFT SUMMARY PATIENT HAS DONE WELL TODAY, HE HAS NOT HAD ANY COMPLAINTS OF CHEST PAIN. CORTEZ WAS DISCONTINUED THIS MORNING, HE HAS HAD ADEQUATE URINE OUTPUT. DRESSING TO R KNEE WAS CHANGED FROM BULKY WITH MEDHAT TO ISLAND, SURGICAL INCISION WAS CLEANED WITH SALINE BEFORE NEW DRESSING WAS APPLIED, NO DRAINAGE, VJ IN PLACE AND WELL APPROXIMATED. PAIN HAS BEEN MANAGED WITH ORAL PAIN MEDICATIONS
[2019-11-26] VITALS (11 sets, daily range): BP systolic 124–176; BP diastolic 70–95; PULSE 72–99; RESP 16–23; TEMP 36.4–37.2; O2SAT 91–96
--- NOTE | 2019-11-26 | NMCV_ITS ---
NM mike perf SPECT r/s* [id number] Iron Naqvi Age: 79 Gender: M : 1940 Exam Date: 11/26/2019 07:29 Ordering Phys: Paresh Holland MD Technologist: Oracio Shannon Exam Location: [facility] Indications: CHEST PAIN AFTER TKR STRESS TEST Please see separate stress test report in [facility] for full findings IMAGE PROTOCOL Rest/Stress 1 Lexiscan Day Radiopharmaceutical Dose (mCi) Administration Site Administered by Rest: Tc-99m 10.9 IV Raheem Padron, BARGE CAPTAIN Sestamibi Stress:Tc-99m 32.3 IV Soledad Stafford, BARGE CAPTAIN Sestamibi Rest: 26-Nov-2019 60 Discovery 630 Stress: 26-Nov-2019 30 Discovery 630 0.4mg Lexiscan. Supine position only as patient was unable to lay prone. SPECT RESULTS Technical Quality: Excellent Raw Data Analysis: Normal Image Corrections: No attenuation or motion correction applied Summed Stress Score: 0 Summed Rest Score: 0 Summed Difference Score: 0 PERFUSION FINDINGS SPECT images demonstrate homogeneous tracer distribution throughout the myocardium. FUNCTIONAL RESULTS (calculated via Gated SPECT) Stress Image LV EF (%): 67 Stress EDV (mL):110 TID: 1.06 Stress ESV (mL):36 FUNCTIONAL FINDINGS: The left ventricle is normal in size. Transient Ischemia Dilatation of 1.1. There is normal left ventricular systolic function. The left ventricular ejection fraction is normal with a value of 67%. There is normal left ventricular wall thickening. IMPRESSIONS 1. Myocardial perfusion imaging is normal. 2. Overall left ventricular systolic function is normal without regional wall motion abnormalities. 3. The left ventricular ejection fraction is normal with a value of 67%. 4. This study suggests a low likelihood of angiographically significant coronary artery disease. Carmen Krishna MD (Electronically Signed) Final Date: 26 November 2019 11:49 S
[2019-11-26] MEDS: CELEcoxib 200 mg Capsule PO ×2 (01:02→12:39)
[2019-11-26] MEDS: oxyCODONE 5 mg IR Tab/Cap PO ×3 (01:37→22:56)
[2019-11-26] MEDS: ondansetron 2 mg/ML SDV 2 mL 4 MG IVP (06:08)
--- NOTE | 2019-11-26 06:12 | PC.NURSE ---
Pt up to bathroom became nauseated once back to bed. Given zofran 4 mg at this time. Sitting up in chair no complaints of pain at this time. at bs.
--- NOTE | 2019-11-26 06:20 | XRR_ITS ---
PROCEDURE INFORMATION: Exam: XR Abdomen, 1 View Exam date and time: 11/26/2019 7:06 AM Age: 79 years old Clinical indication: Abdominal pain; Generalized; Additional info: Abd pain TECHNIQUE: Imaging protocol: XR of the abdomen. Views: Frontal supine view of the abdomen. 1 View. COMPARISON: CT abdomen pelvis w con* [id number] 05/10/2018 11:45 PM FINDINGS: Gastrointestinal tract: No dilated gas-filled loops of bowel. There is a large amount of stool in the colon. There is gas in the rectum. Bones/joints: No acute osseous abnormality. XR/XR KUB portable [id number] IMPRESSION: Large amount of stool in the colon without evidence for mechanical bowel obstruction.
--- NOTE | 2019-11-26 06:31 | P.PN_ITS ---
Subjective Subjective: Interval history: Patient's overall feeling a little worse today. Still little little more short of breath. Requiring up to 3 L today. He has been pretty significantly constipated but has had several good bowel movements now with milk of magnesia and a Dulcolax suppository. That has helped him some. Knee seems to be doing okay. No fevers or chills. Vitals/I&O/Wt Last Vital Signs Temp 98.4 F 11/26/19 04:00 Pulse 78 11/26/19 04:00 Resp 18 11/26/19 04:00 BP 154/79 11/26/19 04:00 Pulse Ox 94 11/26/19 04:00 11/25/19 11/25/19 11/26/19 14:59 22:59 06:59 Intake Total 600 / 690 60 / 690 30 / 690 Output Total 1350 / 1650 300 / 1650 Balance 600 / -960 -1290 / -960 -270 / -960 Physical Exam Narrative: EXAM NARRATIVE: General: No acute distress, Alert. Well nourished. Heart: Regular rate and rhythm. No murmurs, rubs or gallops. Normal capillary refill. Lungs: Relatively clear to auscultation. No wheezes, rhonchi or rales. Abdomen: Positive bowel sounds. Non-tender, non-distended. No hepatosplenomegaly. No gaurding. Extremities: No clubbing, cyanosis, or edema. Negative Bo's Urinary Catheter Management^: F: Cath Placed During This Visit: yes Urinary Catheter Date of Insertion: 11/24/19 Urinary Catheter Time of Insertion: 08:50 Data : 11/26/19 07:24 11/26/19 07:24 A&P Assessment and plan (1) Hypoxia: Etiology for this is still little unclear. It was acute on onset on evening of 11/24/2019. CTA was negative for PE but was not able to see the smaller vessels very clearly. I reviewed the CT scan with the radiologist and confirmed that is difficult to assess the distal vessels. There is some significant atelectasis also. He has had a decrease in his spirometry. He was getting 3-4000 prior to this episode on his incentive spirometer. Yesterday morning he was doing 2500 and this morning he is struggling to get 2000. His white blood cell count was elevated yesterday but I felt like this was normal postoperative changes. It has returned to normal today. Not really suspecting pneumonia. Chest x-ray today just shows some atelectasis but no evidence of CHF or pneumonia. Echocardiogram did show mild to moderate mitral regurg. PA pressure was normal though. -I had reduced his Lovenox to 40 mg once a day due to his hematuria and the negative CTA. Also concerned with it adversely affecting his knee replacement. With a negative stress test and increasing hypoxia right now I am concerned again about a PE. We will go ahead and do 40 mg twice a day until this is sorted out. -I discussed the case with Dr. Donovan with pulmonology, he has kindly agreed to come see the patient. He agrees with repeating the CTA tomorrow morning and continue with the Lovenox at 40 twice a day. We will continue to be aggressive with incentive spirometry and ambulation. Status: Acute (2) Chest pain: -Troponins were all negative and his stress test this morning came back negative as well. Appreciate cardiology's consultation. Feel more confident that this is not cardiac related. This makes me more concerned of a pulmonary embolism as the etiology. He has been chest pain-free since yesterday.. Status: Acute Qualifiers: Chest pain type: unspecified Qualified Code(s): R07.9 - Chest pain, unspecified (3) Hematuria: This most likely was precipitated by the high dose of Lovenox. Ultrasound of his bladder and kidneys was unremarkable. He is doing better on the lower do se Lovenox for now.. 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 Probably evaluate this further as an outpatient.. Status: Acute (5) Status post right knee replacement: Appreciate Dr. Martins's care of this patient. Continue normal postoperative care. We will try to get him off of the Lovenox as soon as safely possible. Status: Acute Additional A&P Information Doing well from this standpoint. Postoperative care per Ortho. Attestations Medical Necessity Statement*: Patient is a 79-year-old gentleman with hypoxia and possible PE requiring continued inpatient monitoring and treatment. 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
--- NOTE | 2019-11-26 07:00 | US_ITS ---
WS: [id number] ULTRASOUND ABDOMEN LIMITED CLINICAL INFORMATION: abd pain COMPARISON: None. FINDINGS: Liver Size: Enlarged Craniocaudal length: 19.5 cm. Echogenicity: Diffuse fatty infiltration Surface nodularity: None. Mass (size and location): None. Bile ducts Intrahepatic ducts: Normal. Common bile duct diameter: 0.5 cm. Gallbladder Normal. Gallstones: None. Gallbladder sludge: None. Gallbladder wall thickening: None. Pericholecystic fluid: None. Sonographic Akhtar sign: Absent. Pancreas Normal as visualized. Right kidney: Normal. Hydronephrosis: None. Size: 9.3 cm x 5.2 cm x 4.7 cm. Abdominal aorta and IVC Visualized portions are normal. Ascites: None. US/US gall bladder [id number] IMPRESSION: 1. Hepatomegaly with diffuse fatty infiltration. 2. Normal gallbladder. Normal common bile duct. 3. No hydronephrosis in right kidney.
[2019-11-26 07:50] LABS: Basophils % 0.2 %; Eosinophils # 0.1 10^3/uL (0.0-0.8); Eosinophils % 0.6 %; Hematocrit 40.4 % (42.0-52.0); Hemoglobin 12.5 g/dL (11.7-16.6); Lymphocytes # 1.5 10^3/uL (0.8-4.8); Lymphocytes % 16.9 %; Mean Corpuscular HGB Conc 30.9 g/dL (30.0-36.0); Mean Corpuscular Hemoglobin 32.3 pg (28.0-34.0); Mean Corpuscular Volume 104.4 fL (80-94); Monocytes % 11.6 %; Neutrophils # 6.07 10^3/uL (1.8-7.7); Neutrophils % 70.2 %; Nucleated Red Blood Cells % 0 %; Platelet Count 150 10^3/cmm (130-400); Red Blood Count 3.87 10^6/uL (4.1-5.3); Red Cell Distribution Width 12.5 % (12.1-15.1); White Blood Count 8.6 10^3/uL (4.0-10.0)
[2019-11-26 08:05] LABS: Alanine Aminotransferase 12 U/L (0-41); Albumin Level 3.9 g/dL (3.5-5.2); Alkaline Phosphatase 43 IU/L (40-130); Aspartate Amino Transferase 19 U/L (0-40); Blood Urea Nitrogen 19 mg/dL (8-23); Calcium 8.4 mg/dL (8.5-10.5); Carbon Dioxide 23 mmol/L (22-29); Chloride 104 mmol/L (98-107); Globulin 2.8 g/dL (1.3-4.6); Glucose 117 mg/dL (65-115); Lipase 76 U/L (13-60); Osmolality Calculated 280 mOsm/kg (285-295); Sodium 136 mmol/L (136-145); Total Bilirubin 0.5 mg/dL (0.15-1.2); Total Protein 6.7 g/dL (6.6-8.7)
--- NOTE | 2019-11-26 08:18 | SUR.PREOP ---
Patient reports no pain or discomfort prior to the start of the procedure.
[2019-11-26] MEDS: regadenoson 0.4 Mg/5 ml Syringe IVP (08:22)
--- NOTE | 2019-11-26 08:48 | PM.PN ---
Subjective Subjective: Interval history: Patient not in room. Undergoing stresstest Vitals/I&O/Wt Last Vital Signs Temp 98.4 F 11/26/19 04:00 Pulse 72 11/26/19 08:39 Resp 18 11/26/19 04:00 BP 176/79 11/26/19 08:39 Pulse Ox 94 11/26/19 04:00 11/25/19 11/26/19 11/26/19 22:59 06:59 14:59 Intake Total 60 / 660 510 / 1170 Output Total 1350 / 1350 300 / 1650 Balance -1290 / -690 210 / -480 Physical Exam Narrative: EXAM NARRATIVE: Patient not examined at this time Urinary Catheter Management^: F: Cath Placed During This Visit: yes Urinary Catheter Date of Insertion: 11/24/19 Urinary Catheter Time of Insertion: 08:50 Data : 11/26/19 07:24 11/26/19 07:24 A&P Assessment and plan (1) Status post right knee replacement: Medical workup in progress per Dr. Holland. No reported Ortho issues Status: Acute Attestations Medical Necessity Statement*: per Dr. Holland Coding Level of Care Code Acute Assistant Professor Of Drama for Ann Fwd Diagnoses Status post right knee replacement Z96.651
--- NOTE | 2019-11-26 09:44 | PC.OT ---
OT TREATMENT ATTEMPTED TWICE THIS A.M. PATIENT AT STRESS TEST UPON FIRST ATTEMPT. AT SECOND ATTEMPT PATIENT WAS JUST RETURNING FROM STRESS TEST AND WAS TOO WIPED OUT TO PARTICIPATE. PATIENT APPEARS SOB AND IS PANTING. HE IS INSTRUCTED IN PLB TECHNIQUE BUT STATES THAT HE JUST CAN'T DO THAT RIGHT NOW ; DOES NOT RETURN DEMONSTRATION. PLB IMPORTANCE EXPLAINED TO PATIENT AND SPOUSE. ASKED SPOUSE IF SHE HAS ANY QUESTIONS REGARDING ADL/MRADLS AND SHE REPORTS NO, WE WENT THROUGH THIS LAST YEAR . THERAPISTS YESTERDAY GAVE VOICE OVER ARTIST. ASKED IF SHE HAND ANY CONCERNS OR QUESTIONS ABOUT USE, SHE STATED, NO, I WAS HERE YESTERDAY WHEN THEY BROUGHT IT. PATIENT AND SPOUSE VOICE NO FURTHER CONCERNS ABOUT ADL/MRADLs. SHE DOES STATE, HE CAN NOT GO HOME IN THIS CONDITION . PATIENT WOULD BENEFIT FROM CONTINUED SKILLED OT TO ADDRESS DEFICITS IN ADL/MRADL S/P TKA. PATIENT AND FAMILY REQUEST THAT TREATMENT BE HELD TODAY.
--- NOTE | 2019-11-26 10:13 | PC.CHAP ---
Pastoral Care Encounter/Spiritual Assessment Type of Contact [] Declined eyelet row marker visit [] Patient/Family/Request visit [] Outpatient visit [] Follow-up visit [] Physician referral [] Code/Alert [x] Routine visit [] Staff referral [] Actively dying [] Patient sleeping [x] Family support [] [] Out of room [] Palliative care [] [] Receiving care in room [] Pre-surgical visit [] Trauma [] Long length of stay [] ICU visit [] Other: Relational/Emotional Strength [] Patient feels connected with others/family/visitors/staff [] Distress [] Loneliness/isolation [] Abandonment Spirituality of Patient [] Person of Kala [] Attends Presybeterian of their Kala [] Believes in Prayer [] Reads Bible or Scientology materials [] There are Spiritual issues to be addressed Ship Superintendent Interventions [x] Prayer [x] Active listening [x] Non-anxious presence [x] Spiritual/emotional support [] Crisis/trauma care [] Spiritual counseling [] Bereavement support [] Provided bereavement packet [] Provided Bible/devotional materials [] Provided toy/stuffed animal, coloring book to patient or family member [] Provided Communion [] Anointing/[place] [] Salvation [x] Completed spiritual assessment [] Other: Impact on Illness or Injury [] Angry [] Fearful [] Anxious [] Often cries [] Exhaustion [] Unable to work [] Unable to attend religious [] Unable to walk/stand [] Unable to read [] Unable to drive [] Unable to eat/drink [] Unable to sleep [] Unable to be with family [] Patient intubated [] Other: Summary Patient entered hospital for knee replacement.. compaction with heart,, out of room for stress test.. spent time with Time spent with patient 15min
[2019-11-26] MEDS: aspirin 81 mg Chew Tablet PO (10:24)
[2019-11-26] MEDS: polyethylene glycol 3350 Pkt 17 gm PO (10:24)
[2019-11-26] MEDS: ascorbic acid 500 mg Tablet PO (10:24)
[2019-11-26] MEDS: magnesium hydroxide 30 mL UDC PO (10:25)
[2019-11-26] MEDS: sennosides-docusate Tablet 2 TAB PO ×2 (10:25→18:28)
[2019-11-26] MEDS: bisacodyl 10 mg Supp PR (10:25)
--- NOTE | 2019-11-26 10:55 | XRR_ITS ---
PROCEDURE INFORMATION: Exam: XR Chest, 1 View Exam date and time: 11/26/2019 11:42 AM Age: 79 years old Clinical indication: Cough and dyspnea; Smoker's cough; Patient HX: Dyspnea x 4 days slight cough, weakness TECHNIQUE: Imaging protocol: XR of the chest Views: 1 view. COMPARISON: CT angio chest PE protcl [id number] 11/24/2019 8:12 PM FINDINGS: Lungs: Poor inspiration. Decreased lung volumes. Bibasilar airspace disease, 10 potentially due to atelectasis. Prior pulmonary granulomatous disease. Pleural space: Trace left pleural effusion. No pneumothorax. Heart/Mediastinum: The cardiac silhouette is not enlarged. Calcified mediastinal lymph nodes from prior granulomatous disease. Bones/joints: There are multilevel bridging osteophytes in the spine. XR/XR chest 1V portable [id number] IMPRESSION: Bibasilar airspace disease, potentially due to atelectasis.
[2019-11-26] MEDS: chlorhexidine gluconate 0.12% Btl 473 mL 30 ML MUCOUS MEM ×3 (12:40→19:48)
--- NOTE | 2019-11-26 15:11 | P.CONIM_ITS ---
Providers/Reason For Consult Consulting Physican/Specialty*: Dr. Denney Datar Reason for Consult*: Hypoxia & Shortness of breath s/p knee replacement Attending Physician: Aaron Calvin Primary Care Provider: LEX Reynaga History of Present Illness History of Present Illness Iron Naqvi is a 79 year old male with no significant medical problems and not on any medications underwent elective right total knee replacement 11/24/2019 for severe osteoarthritis with uneventful postop course until yesterday. Yesterday evening he had sudden onset lower chest/upper abdominal pain with radiation to right arm associated with shortness of breath while eating which lasted for 10 minutes and then another episode at night. Placed on 3 L nasal cannula and CT chest performed-did not reveal PE in major arteries but smaller arteries are not well visualized. Also revealed severe celiac artery stenosis. Patient reported he is a smoker quit more than 40 years ago. Today morning patient had a stress test which was negative and reported feeling better, saturating 93% on 2 L. Currently on Lovenox for 40 mg every 12 hours. No fevers no leukocytosis. Denied any cough, palpitations, dizziness, bowel or bladder problems Review of Systems Narrative: Everything negative except as mentioned in HPI and right knee pain Meds/Allergies Home Medications and Allergies Home Medications Medication Instructions Recorded Confirmed Last Taken Type ascorbic acid (vitamin C) [Vitamin 500 mg PO DAILY 11/11/19 11/11/19 11/17/19 History C] aspirin 81 mg PO DAILY 11/11/19 11/11/19 11/17/19 History calcium carbonate [Calcium 600] 600 mg PO DAILY 11/11/19 11/11/19 11/17/19 History multivitamin 1 cap PO DAILY 11/11/19 11/11/19 11/17/19 History Allergies Allergy/AdvReac Type Severity Reaction Status Date / Time No Known Allergies Allergy Verified 11/11/19 09:25 Current Medications Current Medications Generic Name Dose Route Start Last Admin Trade Name Rezaq PRN Reason Stop Dose Admin Ascorbic Acid 500 mg 11/25/19 09:00 11/26/19 10:24 Vitamin C PO 500 mg DAILY LENORE Administration Aspirin 81 mg 11/25/19 09:00 11/26/19 10:24 Aspirin Chewable PO 81 mg DAILY LENORE Administration Benzocaine 1 each 11/24/19 17:03 11/24/19 17:31 Cepacol MUCOUS MEM 1 each Q2H PRN Administration SORE THROAT Celecoxib 200 mg 11/24/19 13:30 11/26/19 12:39 Celebrex PO 200 mg Q12H LENORE Administration Chlorhexidine Gluconate 30 ml 11/24/19 13:00 11/26/19 12:40 Perigard MUCOUS MEM 30 ml QID LENORE Administration Magnesium Hydroxide 30 ml 11/26/19 10:02 11/26/19 10:25 Milk Of Magnesia PO 30 ml DAILY PRN Administration CONSTIPATION Mupirocin 1 applic 11/24/19 18:00 11/26/19 10:24 Bactroban NASAL 11/29/19 17:59 Not Given BID [facility] Protocol Nitroglycerin 0.4 mg 11/24/19 22:33 11/24/19 22:52 Nitrostat SUBLINGUAL 1 tab Q5M PRN Administration CHEST PAIN Ondansetron HCl 4 mg 11/24/19 11:20 11/26/19 06:08 Zofran IVP 4 mg Q6H PRN Administration NAUSEA AND VOMITING Oxycodone HCl 5 mg 11/24/19 11:20 11/26/19 01:37 Oxycodone Ir PO 5 mg Q4H PRN Administration MODERATE PAIN Phenol 3 spray 11/24/19 17:03 11/24/19 17:31 Phenaseptic MUCOUS MEM 3 spray Q2H PRN Administration SORE THROAT Polyethylene Glycol 17 gm 11/26/19 01:29 11/26/19 10:28 Miralax PO Not Given DAILY LENORE Senna/Docusate Sodium 2 tab 11/24/19 18:00 11/26/19 10:25 Senna-S PO 2 tab BID LENORE Administration PFSH Acute PFSH: Medical History (Updated 11/26/19 @ 16:46 by Олег Donovan MD) 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 Surgical History (Updated 11/24/19 @ 20:22 by Paresh Holland MD) History of total left knee replacement (TKR) Family History (Updated 11/24/19 @ 20:24 by Paresh Holland MD) Father CAD (coronary artery disease) Social History (Updated 11/24/19 @ 20:26 by Paresh Holland MD) Smoking and tobacco status: former smoker Alcohol intake: never Marital status: Current occupation: [employer] Vitals/I&O/Wt Last Vital Signs Temp 98.0 F 11/26/19 11:07 Pulse 78 11/26/19 12:48 Resp 17 11/26/19 11:07 BP 149/83 11/26/19 11:07 Pulse Ox 94 11/26/19 12:48 11/26/19 11/26/19 11/26/19 06:59 14:59 22:59 Intake Total 510 / 1170 120 / 120 Output Total 300 / 1650 Balance 210 / -480 120 / 120 Physical Exam Const: COMMON NORMALS: patient oriented x3 HENMT: COMMON NORMALS: normocephalic, atraumatic, hearing grossly normal bilaterally, Normal external nose present, Normal nasal mucous membranes and turbinates present and oropharynx normal HEAD & SCALP: normocephalic and atraumatic NOSE: Normal external nose present and Normal nasal mucous membranes and turbinates present Eye: COMMON NORMALS: Equal, round and reactive pupils present and EOMs intact bilaterally PUPIL: Yes Equal, round and reactive pupils present Neck/C-Spine: COMMON NORMALS: full ROM, no lymphadenopathy, no meningeal signs, no JVD and Thyroid normal THYROID: Thyroid normal Lymph: LYMPHATIC: no lymphadenopathy noted Chest: COMMONS NORMALS: normal inspection of the chest and normal palpation of entire chest wall CHEST: Yes Symmetrical chest wall rise Resp: COMMON NORMALS: normal respiratory effort, No retractions and No use of accessory muscles AUSCULTATION: crackles Laterality: left Cardio: COMMON NORMALS: no JVD, S1 normal heart sound present, S2 normal heart sound present and Peripheral pulses 2+ throughout HEART SOUNDS: S1 normal heart sound present and S2 normal heart sound present PERIPHERAL PULSES: Peripheral pulses 2+ throughout GI: COMMON NORMALS: Normal to inspection, nondistended, normoactive bowel sounds present, Soft to palpation, non-tender, no masses and no bruits PALPATION: Yes Soft to palpation : COMMON NORMALS: Yes no CVA tenderness BLADDER/KIDNEY EXAM: Yes no CVA tenderness Back/Pelvis: COMMON NORMALS: no CVA tenderness and thoracic and lumbar spine normal to inspection Extremity: GENERAL: Yes normal exam except as noted RIGHT LOWER EXTREMITY: Yes knee joint Right knee: Yes inspection (swelling at surgical site), Yes palpation (tender) and Yes ROM (limited due to knee pain) Neuro: COMMON NORMALS: patient oriented x3, CN's II-XII intact bilaterally, moves all extremities, no focal motor deficits, no sensory deficits noted and gait normal MENINGEAL SIGNS: Yes no meningeal signs Psych: COMMON NORMALS: mental status grossly normal and speech normal SPEECH: Yes normal speech Skin: COMMON NORMALS: no wounds WOUNDS: Yes surgical site Details: no odor Urinary Catheter Management^: F: Cath Placed During This Visit: yes Urinary Catheter Date of Insertion: 11/24/19 Urinary Catheter Time of Insertion: 08:50 A&P Assessment and plan (1) Hypoxia: Status: Acute (2) Chest pain: Status: Acute Qualifiers: Chest pain type: unspecified Qualified Code(s): R07.9 - Chest pain, unspecified (3) Celiac artery stenosis: Status: Acute (4) Status post right knee replacement: Status: Acute (5) Osteoarthritis of right knee: Status: Acute Qualifiers: Osteoarthritis type: primary Qualified Code(s): M17.11 - Unilateral primary osteoarthritis, right knee #Hypoxia, chest pain, shortness of breath in s/p right knee replacement on 11/24/2019 CT chest:1. No pulmonary emboli visualized in the large or medium-sized branches. The smaller artery branches are suboptimally opacified with contrast. 2. Dependent consolidation in both lower lobes is most likely atelectasis. 3. 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 Lower extremity Doppler negative for bilateral DVT Presently saturating 93% with 2 L O2; reported improvement in symptoms currently on Lovenox 40 mg twice daily for suspected PE We will repeat CTPA tomorrow to rule out PE Encourage intense incentive spirometry to prevent atelectasis and resulting pneumonia Physical therapy as feasible and recommended by Ortho Monitor WBC, fever and consider antibiotics if patient develops fever or leukocytosis Celiac artery stenosis might well be contributing to postprandial lower chest pain Case discussed and recommendations conveyed to Dr. Holland Will follow-up closely Consult Attestations Medical Necessity Statement: Hypoxia and post knee replacement surgery patient Time Spent in Patient Care: Greater than 35 minutes (>than 50% of time spent in counselling and/or direct pt care on unit) . 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
[2019-11-26] MEDS: enoxaparin 40 mg/0.4 mL Syringe SUBCUT (15:58)
--- NOTE | 2019-11-26 17:24 | PC.NURSE ---
This nurse called to room to assess patients R knee. upon removal of the island dressing patients R knee, blisters were noted to R lateral side of incision along with swelling and redness. The site was warm to touch. Patient states he has not had an increase in pain, Site was cleansed and new clean dressing was placed. Fresh ice was then placed to patients right knee. Dr. Martins and Dr. Holland notified. No new orders received.
--- NOTE | 2019-11-26 17:29 | PC.NURSE ---
ALBERTO RN NOTIFIED THIS NURSE OF PT HAVING BRUISING, DRAINAGE, REDNESS, SWELLING, AND BLISTERS TO RIGHT KNEE. THIS NURSE HAD ALREADY NOTIFIED DR MARINA OF BLISTERS TO RIGHT KNEE, WHO STATED I NEEDED TO NOTIFY DR TATUM OF THIS. THIS NURSE NOTIFIED DR TATUM WHO STATED HE KNOWS, THIS IS WHAT HAPPENS WHEN YOU ANTICOAGULATE SOMEONE THINKING THEY HAVE A CLOT.
[2019-11-27] VITALS (9 sets, daily range): BP systolic 113–144; BP diastolic 70–79; PULSE 74–88; RESP 18–20; TEMP 36.6–37.2; O2SAT 91–95
[2019-11-27] MEDS: CELEcoxib 200 mg Capsule PO ×2 (00:20→13:08)
[2019-11-27] MEDS: enoxaparin 40 mg/0.4 mL Syringe SUBCUT (03:13)
[2019-11-27 04:34] LABS: Basophils % 0.1 %; Eosinophils # 0.1 10^3/uL (0.0-0.8); Eosinophils % 0.9 %; Hematocrit 34.1 % (42.0-52.0); Hemoglobin 11.5 g/dL (11.7-16.6); Lymphocytes # 1.6 10^3/uL (0.8-4.8); Mean Corpuscular HGB Conc 33.7 g/dL (30.0-36.0); Mean Platelet Volume 10.3 fL (7.4-10.4); Monocytes % 12.8 %; Neutrophils # 5.12 10^3/uL (1.8-7.7); Neutrophils % 65.8 %; Nucleated Red Blood Cells % 0 %; Platelet Count 157 10^3/cmm (130-400); Red Blood Count 3.59 10^6/uL (4.1-5.3); Red Cell Distribution Width 12.1 % (12.1-15.1); White Blood Count 7.8 10^3/uL (4.0-10.0)
[2019-11-27 05:10] LABS: Alanine Aminotransferase 13 U/L (0-41); Albumin Level 3.5 g/dL (3.5-5.2); Alkaline Phosphatase 43 IU/L (40-130); Anion Gap 12.3 (5-19); Aspartate Amino Transferase 20 U/L (0-40); Blood Urea Nitrogen 15 mg/dL (8-23); Calcium 9.2 mg/dL (8.5-10.5); Carbon Dioxide 25 mmol/L (22-29); Chloride 103 mmol/L (98-107); Globulin 2.6 g/dL (1.3-4.6); Glucose 122 mg/dL (65-115); NT Pro B Type Natriuretic Pept 116 pg/mL (0-450); Osmolality Calculated 280 mOsm/kg (285-295); Potassium 4.3 mmol/L (3.5-5.1); Sodium 136 mmol/L (136-145); Total Bilirubin 0.6 mg/dL (0.15-1.2); Total Protein 6.1 g/dL (6.6-8.7)
[2019-11-27] MEDS: iohexol 350 mg/mL 100 mL Btl IV (05:33)
[2019-11-27] MEDS: ondansetron 2 mg/ML SDV 2 mL 4 MG IVP (05:42)
--- NOTE | 2019-11-27 06:00 | CTR_ITS ---
PROCEDURE INFORMATION: Exam: CT Angiography Chest With Contrast Exam date and time: 11/27/2019 5:04 AM Age: 79 years old Clinical indication: Shortness of breath; Patient HX: HX recent knee replacement; Additional info: Repeat to evaluate for pe TECHNIQUE: Imaging protocol: Computed tomographic angiography of the chest with intravenous contrast. 3D rendering: MIP and/or 3D reconstructed images were created by the technologist. Radiation optimization: All CT scans at this facility use at least one of these dose optimization techniques: automated exposure control; mA and/or kV adjustment per patient size (includes targeted exams where dose is matched to clinical indication); or iterative reconstruction. Contrast material: OMNI 350; Contrast volume: 95 ml; Contrast route: INTRAVENOUS (IV); COMPARISON: CT angio chest PE protcl [id number] 11/24/2019 8:12 PM RADIATION DOSE METRICS: Total DLP (mGy-cm): 651.85 FINDINGS: Pulmonary arteries: No pulmonary emboli identified. Aorta: Minimal atherosclerotic calcification of the thoracic aorta. No thoracic aortic aneurysm. Lungs: Large area of airspace opacity in the right lower lobe, consistent with atelectasis and/or pneumonia, increased from prior study. Moderate to large area of airspace opacity in the left lower lobe, consistent with atelectasis and/or pneumonia, similar to prior study. Pleural space: No pneumothorax or pleural effusion. Heart: Heart size within normal limits. Lymph nodes: Calcified aorticopulmonary window and left paratracheal lymph nodes, consistent with old granulomatous disease. Bones/joints: Flowing ossification anterior to the thoracic spine, consistent with diffuse idiopathic skeletal hyperostosis. Soft tissues: Unremarkable. Upper abdomen: Images of the upper abdomen were reviewed. Many hypodense lesions in the liver, largest 1.3 cm in the right hepatic lobe on series 2, image 379. Etiology and clinical significance are uncertain. These are similar to prior study. Other findings: If additional or more detailed information is needed, an addendum can be generated on request. CT/CT angio chest PE protcl [id number] IMPRESSION: 1. No pulmonary emboli identified. 2. Large area of airspace opacity in the right lower lobe, consistent with atelectasis and/or pneumonia, increased from prior study. 3. Moderate to large area of airspace opacity in the left lower lobe, consistent with atelectasis and/or pneumonia, similar to prior study. 4. Additional, nonemergent findings as above. Radiation Dose CTDIVOL = (mGy): DLP = 651.85 (mGy-cm)
--- NOTE | 2019-11-27 06:16 | PC.NURSE ---
SHIFT SUMMARY Had a good night. Says sure feels better than yesterday after the Stress test. Right knee continues with edema, bruising and fluid filled blisters present to the lateral aspect of the knee. Island dressing dry & intact. Ice packs in use and changed as needed. Only took one po Oxyir during night for pain. Says pain is actually pretty good as long as is still. Did sit up in chair once tonight. Does IS well and enc use. Was NPO at midnight and has already had CTA done this morning. Had some nausea afterwards without vomiting and was relieved with IV Zofran.
[2019-11-27] MEDS: ascorbic acid 500 mg Tablet PO (08:40)
[2019-11-27] MEDS: aspirin 81 mg Chew Tablet PO (08:40)
[2019-11-27] MEDS: mupirocin oint 22 gm 1 APPLIC NASAL ×2 (08:41→17:05)
[2019-11-27] MEDS: chlorhexidine gluconate 0.12% Btl 473 mL 30 ML MUCOUS MEM ×4 (08:41→20:20)
[2019-11-27] MEDS: oxyCODONE 5 mg IR Tab/Cap PO (13:08)
--- NOTE | 2019-11-27 14:02 | PM.PN ---
Subjective Subjective: Interval history: Patient is feeling improved today. This morning when I walked in the room, he was off of supplemental O2 and maintaining 94%. There is some developing hematoma around the knee and some blistering however without any gross cellulitic changes at this time. Patient remains afebrile and hemodynamically stable. States feeling better. CTA performed again this morning was negative for PE. It did show the presence of lower lobe infiltrates bilaterally. 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 EXT: bruising noted around R knee joint and 2 blisters on lateral aspect, intact, no gross cellulitic changes Urinary Catheter Management^: F: Cath Placed During This Visit: yes Urinary Catheter Date of Insertion: 11/24/19 Urinary Catheter Time of Insertion: 08:50 Data : 11/27/19 04:07 11/27/19 04:07 A&P Assessment and plan (1) Hypoxia: Status: Acute (2) Chest pain: Status: Acute Qualifiers: Chest pain type: unspecified Qualified Code(s): R07.9 - Chest pain, unspecified (3) Celiac artery stenosis: Status: Acute (4) Status post right knee replacement: Status: Acute (5) Osteoarthritis of right knee: Status: Acute Qualifiers: Osteoarthritis type: primary Qualified Code(s): M17.11 - Unilateral primary osteoarthritis, right knee #Hypoxia, chest pain, shortness of breath in s/p right knee replacement on 11/24/2019 Presently saturating 94% on RA, states that breathing is improving currently Repeat CTA today without any evidence of PE change lovenox to ppx dosing at 40mg qd Encourage intense incentive spirometry to prevent atelectasis and resulting pneumonia no leukocytosis or fever, )2 requirements improving, monitor off abx for now Stress test negative, less indicative of cardiac etiology Local wound care over blisters around R knee, appear to be related to adhesive dressings, no gross cellulitis Attestations Medical Necessity Statement*: awaiting oprimization of respiratory status Coding Level of Care Code Acute Accounts Payable Specialist for g Fwd Diagnoses Hypoxia R09.02 Chest pain R07.9 Chest pain type: unspecified 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
--- NOTE | 2019-11-27 18:16 | P.PN_ITS ---
Subjective Subjective: Interval history: Date of service: 11/26/2019 He underwent stress test earlier this morning and complains of nausea and SOB post procedure. He feels tired. He tolerated his lunch fine. He currently feels much better than before. Medications: Reviewed: Yes Medication Review Details: Current Medications Ascorbic Acid (Vitamin C) 500 mg PO DAILY [facility] Last Admin: 11/27/19 08:40 Dose: 500 mg Documented by: Aspirin (Aspirin Chewable) 81 mg PO DAILY [facility] Last Admin: 11/27/19 08:40 Dose: 81 mg Documented by: Benzocaine (Cepacol) 1 each MUCOUS MEM Q2H PRN PRN Reason: SORE THROAT Last Admin: 11/24/19 17:31 Dose: 1 each Documented by: Celecoxib (Celebrex) 200 mg PO Q12H [facility] Last Admin: 11/27/19 13:08 Dose: 200 mg Documented by: Chlorhexidine Gluconate (Perigard) 30 ml MUCOUS MEM QID [facility] Last Admin: 11/27/19 17:05 Dose: 30 ml Documented by: Enoxaparin Sodium (Lovenox) 40 mg SUBCUT Q24H [facility] Magnesium Hydroxide (Milk Of Magnesia) 30 ml PO DAILY PRN PRN Reason: CONSTIPATION Last Admin: 11/26/19 10:25 Dose: 30 ml Documented by: Metoclopramide HCl (Reglan) 10 mg IV ONCE PRN PRN Reason: N/V unrelieved by zofran Morphine Sulfate (Morphine) 2 mg IVP Q1H PRN PRN Reason: BREAKTHROUGH PAIN Mupirocin (Bactroban) 1 applic NASAL BID [facility]; Protocol Stop: 11/29/19 17:59 Last Admin: 11/27/19 17:05 Dose: 1 applic Documented by: Naloxone HCl (Narcan) 0.1 mg IV Q2M PRN PRN Reason: Respiratory rate less than 8. Nitroglycerin (Nitrostat) 0.4 mg SUBLINGUAL Q5M PRN PRN Reason: CHEST PAIN Last Admin: 11/24/19 22:52 Dose: 1 tab Documented by: Ondansetron HCl (Zofran) 4 mg IVP Q6H PRN PRN Reason: NAUSEA AND VOMITING Last Admin: 11/27/19 05:42 Dose: 4 mg Documented by: Ondansetron HCl (Zofran) 4 mg IVP Q2M PRN PRN Reason: NAUSEA Oxycodone HCl (Oxycodone Ir) 5 mg PO Q4H PRN PRN Reason: MODERATE PAIN Last Admin: 11/27/19 13:08 Dose: 5 mg Documented by: Phenol (Phenaseptic) 3 spray MUCOUS MEM Q2H PRN PRN Reason: SORE THROAT Last Admin: 11/24/19 17:31 Dose: 3 spray Documented by: Polyethylene Glycol (Miralax) 17 gm PO DAILY [facility] Last Admin: 11/27/19 08:43 Dose: Not Given Documented by: Senna/Docusate Sodium (Senna-S) 2 tab PO BID [facility] Last Admin: 11/27/19 17:06 Dose: Not Given Documented by: Vitals/I&O/Wt Last Vital Signs Temp 97.8 F 11/27/19 15:29 Pulse 75 11/27/19 15:29 Resp 18 11/27/19 15:29 BP 144/70 11/27/19 15:29 Pulse Ox 95 11/27/19 15:29 11/27/19 11/27/19 11/27/19 06:59 14:59 22:59 Intake Total 300 / 900 440 / 440 150 / 590 Output Total 200 / 200 300 / 500 Balance 300 / 900 240 / 240 -150 / 90 Physical Exam Narrative: EXAM NARRATIVE: Const COMMON NORMALS: no acute distress, average body habitus, patient oriented x3, alert and well nourished GENERAL APPEARANCE: cooperative, comfortable, well kempt and well developed ORIENTATION/CONSCIOUSNESS: Yes oriented to person, Yes oriented to place and Yes oriented to time HENMT COMMON NORMALS: normocephalic, atraumatic, hearing grossly normal bilaterally and Normal external nose present HEAD & SCALP: normocephalic and atraumatic FACE & SINUS: face symmetric NOSE: Normal external nose present Eye COMMON NORMALS: Equal, round and reactive pupils present, EOMs intact bilaterally and conjunctivae normal ALIGNMENT: Yes alignment normal CONJUNCTIVA: Yes conjunctivae normal SCLERA: sclerae normal PUPIL: Yes Equal, round and reactive pupils present Neck/C-Spine COMMON NORMALS: supple and no JVD; negative for No carotid bruits GENERAL: Yes trachea midline Chest COMMONS NORMALS: normal inspection of the chest CHEST: Yes Symmetrical chest wall rise and No tenderness Resp COMMON NORMALS: normal respiratory effort, No use of accessory muscles and clear to auscultation bilaterally AUSCULTATION: clear to auscultation bilaterally, no crackles, no rales, no rhonchi and no wheezes Cardio COMMON NORMALS: no JVD, regular rate, regular rhythm, S1 normal heart sound pr esent, S2 normal heart sound present and Peripheral pulses 2+ throughout; negative for No gallops present (Cardio) JUGULAR VENOUS DISTENTION: no JVD PALPATION: normal PMI, no heave, no palpable S3 and no thrill RATE: regular rate RHYTHM: regular rhythm HEART SOUNDS: S1 normal heart sound present, S2 normal heart sound present, no gallops and no murmurs BRUITS: no carotid bruits PERIPHERAL PULSES: Peripheral pulses 2+ throughout Extremity COMMON NORMALS: no pedal edema NARRATIVE EXTREMITY EXAM: Right knee dressing+, left knee incision of previous Sx Neuro COMMON NORMALS: patient oriented x3 and no focal motor deficits SENSORIUM/ORIENTATION: Yes alert, Yes oriented to person, Yes oriented to place and Yes oriented to time CRANIAL NERVES: Yes CN normal except as noted Psych COMMON NORMALS: Normal thought process present APPEARANCE: Yes well kempt MOOD & AFFECT: Yes euthymic mood THOUGHT PROCESS: Normal thought process present Urinary Catheter Management^: F: Cath Placed During This Visit: yes Urinary Catheter Date of Insertion: 11/24/19 Urinary Catheter Time of Insertion: 08:50 Data : 11/27/19 04:07 11/27/19 04:07 Attestation for Other Data: I personally reviewed and interpreted the following: Other data: Lexiscan sestamibi stress test Technical Quality: Excellent Raw Data Analysis: Normal Image Corrections: No attenuation or motion correction applied Summed Stress Score: 0 Summed Rest Score: 0 Summed Difference Score: 0 PERFUSION FINDINGS SPECT images demonstrate homogeneous tracer distribution throughout the myocardium. FUNCTIONAL RESULTS (calculated via Gated SPECT) Stress Image LV EF (%): 67 Stress EDV (mL):110 TID: 1.06 Stress ESV (mL):36 FUNCTIONAL FINDINGS: The left ventricle is normal in size. Transient Ischemia Dilatation of 1.1. There is normal left ventricular systolic function. The left ventricular ejection fraction is normal with a value of 67%. There is normal left ventricular wall thickening. IMPRESSIONS 1. Myocardial perfusion imaging is normal. 2. Overall left ventricular systolic function is normal without regional wall motion abnormalities. 3. The left ventricular ejection fraction is normal with a value of 67%. 4. This study suggests a low likelihood of angiographically significant coronary artery disease TTE CONCLUSIONS 1. Normal left ventricular cavity size. There is possibly some basal septal hypertrophy. Normal left ventricular systolic function. Left ventricular ejection fraction is estimated at 65%. No regional wall motion abnormalities. Normal mitral inflow pattern. 2. There is systolic anterior motion of anterior mitral valve leaflet with eccentric posteriorly directed mild to moderate mitral valve regurgitation. 3. Peak resting left ventricular outflow tract gradient of 28 mmHg. 4. Normal pulmonary artery pressure. 5. No prior similar studies to compare A&P Assessment and plan (1) Chest pain: Lower Chest pain/upper abdominal pain with hypoxia -CAD risk factor of age and sex. No prior stress test. -No ischemia on stress test. Normal GB. 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 I am not sure if this would cause sudden onset post prandial pain. -In case symptoms of upper abdominal pain post meals recurs/ worsen, will plan for out patient testing. -f/u in 4-6 weeks as an outpatient. Status: Acute Additional A&P Information Mild to moderate eccentric posterior MR Thank you for allowing me to participate in patient's care. Plaese feel free to call with questions or concerns. I will sign off. Attestations Medical Necessity Statement*: As per Dr. 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
[2019-11-27] MEDS: magnesium hydroxide 30 mL UDC PO (20:21)
[2019-11-28] VITALS (7 sets, daily range): BP systolic 118–132; BP diastolic 74–75; PULSE 67–93; RESP 18; TEMP 36.4–36.9; O2SAT 92–94
[2019-11-28] MEDS: CELEcoxib 200 mg Capsule PO ×2 (00:42→13:17)
[2019-11-28 03:57] LABS: Eosinophils # 0.1 10^3/uL (0.0-0.8); Eosinophils % 1.4 %; Hematocrit 33.1 % (42.0-52.0); Hemoglobin 11.1 g/dL (11.7-16.6); Lymphocytes # 1.6 10^3/uL (0.8-4.8); Lymphocytes % 22.1 %; Mean Corpuscular HGB Conc 33.5 g/dL (30.0-36.0); Mean Corpuscular Hemoglobin 32.2 pg (28.0-34.0); Mean Corpuscular Volume 95.9 fL (80-94); Mean Platelet Volume 10.1 fL (7.4-10.4); Monocytes # 0.9 10^3/uL (0.2-0.9); Monocytes % 12.4 %; Neutrophils # 4.66 10^3/uL (1.8-7.7); Neutrophils % 63.7 %; Nucleated Red Blood Cells % 0 %; Platelet Count 173 10^3/cmm (130-400); Red Blood Count 3.45 10^6/uL (4.1-5.3); Red Cell Distribution Width 12.2 % (12.1-15.1); White Blood Count 7.3 10^3/uL (4.0-10.0)
[2019-11-28 04:15] LABS: Alanine Aminotransferase 32 U/L (0-41); Albumin Level 3.3 g/dL (3.5-5.2); Alkaline Phosphatase 41 IU/L (40-130); Anion Gap 9.3 (5-19); Aspartate Amino Transferase 41 U/L (0-40); Blood Urea Nitrogen 19 mg/dL (8-23); Calcium 8.2 mg/dL (8.5-10.5); Carbon Dioxide 27 mmol/L (22-29); Chloride 101 mmol/L (98-107); Globulin 2.9 g/dL (1.3-4.6); Glucose 129 mg/dL (65-115); Osmolality Calculated 274 mOsm/kg (285-295); Potassium 4.3 mmol/L (3.5-5.1); Sodium 133 mmol/L (136-145); Total Bilirubin 0.5 mg/dL (0.15-1.2); Total Protein 6.2 g/dL (6.6-8.7)
[2019-11-28] MEDS: enoxaparin 40 mg/0.4 mL Syringe SUBCUT (04:38)
--- NOTE | 2019-11-28 06:27 | PC.NURSE ---
SHIFT SUMMARY Had a good night. Has rested well. No request for pain meds and says only minimal pain in right knee. Does well ambulating to bathroom with walker. Island dressing to knee is dry & intact. Continues with edema to right leg with bruising around knee. Fluid filled blisters remain to lateral aspect of knee. Ice packs in use. Neurovascular checks to RLE WNL. Has not worn any O2 tonight. Says still some slight SOB with exertion but overall breathing is much improved.
[2019-11-28] MEDS: polyethylene glycol 3350 Pkt 17 gm PO (08:29)
[2019-11-28] MEDS: oxyCODONE 5 mg IR Tab/Cap PO (08:29)
[2019-11-28] MEDS: sennosides-docusate Tablet 2 TAB PO (08:30)
[2019-11-28] MEDS: aspirin 81 mg Chew Tablet PO (08:30)
[2019-11-28] MEDS: chlorhexidine gluconate 0.12% Btl 473 mL 30 ML MUCOUS MEM ×2 (08:33→13:06)
[2019-11-28] MEDS: ascorbic acid 500 mg Tablet PO (08:33)
--- NOTE | 2019-11-28 09:45 | PC.SOCIAL ---
Pg 2 IMM Explained to pt Pg 2 IMM. Pt verbally understands. No questions voiced. Provided pt a copy. Signed, dated, & timed a copy & placed in chart.
--- NOTE | 2019-11-28 10:57 | P.DS_ITS ---
Discharge Providers Date of Admission: 11/25/19 09:56 Date of Discharge: November 28, 2019 Attending Provider at Admission: Dillon Martins MD Attending Provider at Discharge: Dillon Martins MD Primary Care Provider: LEX Reynaga Diagnoses at Discharge Discharge Diagnosis (1) Chest pain: Status: Acute Qualifiers: Chest pain type: unspecified Qualified Code(s): R07.9 - Chest pain, unspecified (2) Status post right knee replacement: Status: Acute (3) Celiac artery stenosis: Status: Acute Reason for Visit Reason for Visit: Primary osteoarthritis of right knee Hospital Course Hospital Course: Mr. Naqvi is a 79-year-old male who was admitted for elective right total knee arthroplasty. Postoperatively from a orthopedic standpoint he did very well. He is up the day of surgery ambulating however by that evening began developing chest pain. The patient was seen by Dr. Holland his primary care physician and the possibility of a pulmonary embolus was entertained. He underwent a CT angiogram. Dr. Holland expressed concerns about the quality of the study and ordered additional venous Dopplers of both lower extremities and a second CT angiogram which revealed no particular abnormalities. Radiology was seen and the patient underwent a cardiac stress test which as well was unremarkable. 11/27/2019 it was felt that cardiac and pulmonary sources had been ruled out in the medicine team had signed off. The patient was fully ambulatory with his walker although he still complained of weakness and short of breath. He was discharged home on 12-15 Physical Exam Narrative: EXAM NARRATIVE: On 11/28/2019 the patient had swelling about his right knee and blisters laterally due to his recent anticoagulation due to his cardiac work-up. His calves were soft. His incision was clean. Urinary Catheter Management^: F: Cath Placed During This Visit: yes Urinary Catheter Date of Insertion: 11/24/19 Urinary Catheter Time of Insertion: 08:50 Discharge Data Data Completed and Pending: Completed Studies During Hospitalization Category Date Time Status CT angio chest PE protcl [id number] NOW Cat Scan 11/24/19 19:[address] angio chest PE protcl [id number] Rout ine Cat Scan 11/27/19 06:00 Completed Sestamibi Stress Test Request Routi ne Exams 11/25/19 13:54 Completed XR KUB portable 7 [id number] Routine Exams 11/26/19 06:20 Completed XR chest 1V [place] ble [id number] Routine Exams 11/26/19 10:55 Completed XR knee RT 1-2V 7 3560 Routine Exams 11/24/19 10:31 Completed NM mike perf SPECT r/s* [id number] Routin e Nuc Med 11/26/19 Completed CV echo complete* [id number] Routine Ultrasound 11/25/19 06:37 [place] [id number] Routin e Ultrasound 11/25/19 13:35 Completed US gall bladder 7 6705 Routine Ultrasound 11/26/19 07:00 Completed US renal BI with bladder Routine Ultrasound 11/25/19 06:36 Completed Labs from last 24 hours 11/28/19 11/28/19 03:33 03:33 WBC 7.3 RBC 3.45 L Hgb 11.1 L Hct 33.1 L MCV 95.9 H MCH 32.2 MCHC 33.5 RDW 12.2 Plt Count 173 MPV 10.1 Neut % (Auto) 63.7 Lymph % (Auto) 22.1 [place] % (Auto) 12.4 Eos % (Auto) 1.4 Baso % (Auto) 0.0 Neut # (Auto) 4.66 Lymph # (Auto) 1.6 [place] # (Auto) 0.9 Eos # (Auto) 0.1 Baso # (Auto) 0.0 Nucleated RBC % (a uto) 0 Nucleated RBCs # 0.0 Sodium 133 L Potassium 4.3 Chloride 101 Carbon Dioxide 27 Anion Gap 9.3 BUN 19 Creatinine 1.0 GFR Calculation Not Reportable Glucose 129 H Calculated Osmolal ity 274 L Calcium 8.2 L Total Bilirubin 0.5 AST 41 H ALT 32 Alkaline Phosphata se 41 Total Protein 6.2 L Albumin 3.3 L Globulin 2.9 Vitals: Last Vital Signs Temp 98.2 F 11/28/19 07:43 Pulse 93 11/28/19 08:13 Resp 18 11/28/19 08:29 BP 120/75 11/28/19 07:43 Pulse Ox 94 11/28/19 08:13 Discharge Plan Discharge Condition: Stable Prescriptions: New oxycodone 5 mg Tablet 5 mg PO Q4H PRN (Reason: Moderate Pain) 7 Days Qty: 30 RF: 0 Continued calcium carbonate [Calcium 600] 600 mg calcium (1,500 mg) Tablet 600 mg PO DAILY RF: 0 ascorbic acid (vitamin C) [Vitamin C] 500 mg Tablet 500 mg PO DAILY RF: 0 aspirin 81 mg Tablet,Chewable 81 mg PO DAILY RF: 0 multivitamin Capsule 1 cap PO DAILY RF: 0 Referrals: [facility] [Other] [facility] [Outside] Dillon Martins MD [Physician] - 12/07/19 9:30 am Paresh Holland MD [Staff Physician] - Discharge Diet: Advance as tolerated Discharge Activity: Use walker/crutches as instructed Activity Restrictions/Additional Instructions: May shower once incisions completely free of drainage. Replaced dressings as needed for drainage.. Take oxycodone for breakthrough pain. Exercises per physical therapy. Ice and elevate knees as needed for pain and swelling.. 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
--- NOTE | 2019-11-28 14:31 | P.PN_ITS ---
Subjective Subjective: Interval history: Patient states feeling a lot better today. He worked well with physical therapy. Patient was seen by orthopedics and has been deemed stable to be discharged. He denies of having any nausea, vomiting, headache. He states his appetite is improving. States his energy levels are improving as well. On examination patient is saturating 90% on room air. Labs and vitals noted. 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 EXT: bruising noted around R knee joint and 2 blisters on lateral aspect, intact, no gross cellulitic changes Urinary Catheter Management^: F: Cath Placed During This Visit: yes Urinary Catheter Date of Insertion: 11/24/19 Urinary Catheter Time of Insertion: 08:50 Data : 11/28/19 03:33 11/28/19 03:33 A&P Assessment and plan (1) Hypoxia: Status: Acute (2) Chest pain: Status: Acute Qualifiers: Chest pain type: unspecified Qualified Code(s): R07.9 - Chest pain, unspecified (3) Celiac artery stenosis: Status: Acute (4) Status post right knee replacement: Status: Acute (5) Osteoarthritis of right knee: Status: Acute Qualifiers: Osteoarthritis type: primary Qualified Code(s): M17.11 - Unilateral primary osteoarthritis, right knee #Hypoxia, chest pain, shortness of breath in s/p right knee replacement on 11/24/2019 Presently saturating 94% on RA, states that breathing is improving currently Repeat CTA today without any evidence of PE. No signs of pneumonia as well. Most likely atelectasis. Continue with incentive spirometry. Patient is stable enough to be discharged from medicine point of view. He should be discharged on levofloxacin for 5-day course. Given the 5 that patient has had 2 CTAs chest PE protocol in last 4 days have encouraged patient for good oral intake of fluids to prevent VICKY. Patient verbalized understanding. Patient should follow-up with his primary care provider within next 4 to 7 days and repeat BMP. Next 4 to 7 days change lovenox to ppx dosing at 40mg qd Attestations Medical Necessity Statement*: As per primary team. Time Spent in Patient Care: Greater than 35 minutes (>than 50% of time spent in counselling and/or direct pt care on unit) . Coding Level of Care Code Acute Retail Sales Consultant for Ann Fwd Diagnoses Hypoxia R09.02 Chest pain R07.9 Chest pain type: unspecified 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
== END 2019-11-28 16:00 | disposition home health service (06) | DRG 470 ==
LOC: MEDSURG 11:11
PROVIDERS: Family Medicine; Internal Medicine; Admitting Provider Orthopaedic Surgery; Family Provider Student in an Organized Health Care Education/Training Program; Visit Provider Orthopaedic Surgery
PROC: 0SRC0JA Replacement of Right Knee Joint with Synthetic Substitute, Uncemented, Open Approach (ICD-10-PCS; CPT 27447; principal; 2019-11-24 08:00)
DX: M17.11 Unilateral primary osteoarthritis, right knee (principal); I77.4 Celiac artery compression syndrome; K59.00 Constipation, unspecified; R31.9 Hematuria, unspecified; R09.02 Hypoxemia
CPT/HCPCS: 12345; 36415; 51702; 71045; 71275; 73560; 74018; 76705; 76770; 76857; 78452; 80053; 83690; 83735; 83880; 84484; 85018; 85025; 87635; 93005; 93017; 93306; 93970; 94664; 96372; 96374; 96375; 97110; 97116; 97161; 97165; 97530; 97535; A9281; A9500; C1776; G0378; J0171; J0690; J1100; J1580; J1650; J1885; J2250; J2405; J2704; J2710; J2785; J2795; J3010; J3490; J7030; Q9967

== ENCOUNTER 2019-12-20 08:48 | Outpatient (RCR) | payer MEDICARE, OTHER, SELFPAY | END 2019-12-27 23:59 | disposition home or self-care (01) | LOC: SPT 08:48 | PROVIDERS: PCP Family Medicine; Referring Provider Orthopaedic Surgery; Visit Provider Orthopaedic Surgery | DX: Z96.611 Presence of right artificial shoulder joint (principal) | CPT/HCPCS: 97110; 97140; 97161 ==

== ENCOUNTER 2019-12-28 06:00 | Outpatient (RCR) | payer MEDICARE, OTHER, SELFPAY | END 2020-01-26 23:59 | disposition home or self-care (01) | LOC: SPT 06:00 | PROVIDERS: PCP Family Medicine; Referring Provider Orthopaedic Surgery; Visit Provider Orthopaedic Surgery | DX: Z47.1 Aftercare following joint replacement surgery (principal); Z96.651 Presence of right artificial knee joint | CPT/HCPCS: 97110; 97140; 97164 ==

== ENCOUNTER → 2020-01-05 10:28 | Outpatient (BNVA) | payer MEDICARE, OTHER, SELFPAY | PROVIDERS: PCP Family Medicine; Visit Provider Orthopaedic Surgery | DX: Z47.1 Aftercare following joint replacement surgery (principal); Z96.651 Presence of right artificial knee joint | CPT/HCPCS: 73560; 73565 ==

== ENCOUNTER 2020-01-27 06:00 | Outpatient (RCR) | payer MEDICARE, OTHER, SELFPAY | END 2020-02-26 23:59 | disposition home or self-care (01) | LOC: SPT 06:00 | PROVIDERS: PCP Family Medicine; Referring Provider Orthopaedic Surgery; Visit Provider Orthopaedic Surgery | DX: Z47.1 Aftercare following joint replacement surgery (principal); Z96.651 Presence of right artificial knee joint | CPT/HCPCS: 97110; 97140 ==

== ENCOUNTER 2021-07-25 13:26 | Observation (INO) | payer MEDICARE, OTHER, SELFPAY ==
[2021-07-25] VITALS (8 sets, daily range): BP systolic 124–165; BP diastolic 64–85; PULSE 73–93; RESP 17–24; O2SAT 91–96; BMI 25.1; BMI 22.9
--- NOTE | 2021-07-25 13:42 | W.ED.CHESTPA ---
HPI - Chest Pain General: Chief Complaint: Chest Pain Stated Complaint: Chest Pain Time Seen by Provider: 07/25/21 13:42 History of Present Illness: Mr. Naqvi is a 81-year-old gentleman without significant past medical history who presents to the emergency department due to chest discomfort and shortness of breath. Yesterday he was at his baseline health. Shortly after midnight he woke up and had mild abdominal cramping with diarrhea. This has resolved. This morning however he endorses substernal chest discomfort that feels like pain with radiation to bilateral arms. He has mild shortness of breath associated with this however no other infectious symptoms. He endorses unsteadiness on his feet. He denies sick contacts. Intensity of symptoms has persisted and is Moderate. No other specific changes in health, exacerbating, or alleviating factors identified. 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 Surgical History History of total left knee replacement (TKR) Family History Father CAD (coronary artery disease) Social History Smoking and tobacco status: former smoker Alcohol intake: never Marital status: Current occupation: [employer] Physical Exam Const: COMMON NORMALS: alert GENERAL APPEARANCE: cooperative, well developed and ill appearing (mildly) HENMT: COMMON NORMALS: normocephalic and atraumatic HEAD & SCALP: normocephalic and atraumatic THROAT: posterior oropharynx normal Eye: COMMON NORMALS: conjunctivae normal CONJUNCTIVA: Yes conjunctivae normal SCLERA: sclerae normal Neck/C-Spine: COMMON NORMALS: supple GENERAL: Yes trachea midline Resp: COMMON NORMALS: clear to auscultation bilaterally EFFORT & INSPECTION: Yes able to speak in complete sentences AUSCULTATION: clear to auscultation bilaterally Cardio: COMMON NORMALS: regular rate and regular rhythm RATE: regular rate RHYTHM: regular rhythm GI: COMMON NORMALS: Soft to palpation PALPATION: Yes Soft to palpation and No Tenderness to palpation present (GI) PERCUSSION: normal to percussion Extremity: GENERAL: Yes normal exam except as noted and No edema Neuro: COMMON NORMALS: moves all extremities SENSORIUM/ORIENTATION: Yes alert and No Orientation impaired Psych: COMMON NORMALS: mental status grossly normal and Normal thought process present THOUGHT PROCESS: Normal thought process present Course ED course: - Patient was seen and evaluated by me at bedside - Patient placed on cardiac monitors, IV access obtained - Initial evaluation notable for exam as above - Labs and xrays personally interpreted by me. - Aspirin and fluids given. EKGs from 1336, 1545, 1406 interpreted by ED. Sinus rhythm with nonspecific ST segment abnormalities. Electronic interpretation from 1336 is incorrect as P waves are well visualized. No STEMI. - Labs notable for no leukocytosis, hemoconcentration given to prior. Metabolic panel with perhaps mild dehydration. Delta troponin negative. Viral studies negative. - Imaging notable for no lobar consolidation or pneumothorax - Upon serial reexamination after treatment the patient was similar - Based on patient history, evaluation, and testing as interpreted the most likely cause of the patient's condition is chest pain - The results of ED evaluation were discussed with the patient including possible disposition options. The patient is moderate risk by heart score. He was uncomfortable with discharge and prefers inpatient management which is reasonable based on risk for major adverse cardiac events. I discussed plan for admission due to requirement for level of care not available if discharged to prevent significant worsening/deterioration. - Admitting service was contacted and Dr Melgoza with the hospitalist service agreed to admit the patient - Patient was admitted without further deterioration or significant events. Note: Click bubbles or prepopulated vallejo in note writing are used for assistance with data collection and billing and are inherently more limited than narrative and other text portions of this note. Please use narrative for additional clinical history and defer to narrative/free test for any case of contradictory information. If information appears in only free text or click bubble it should be considered present or absent as reported. Please contact note principal technical writer for clarifications of clinical information or contradictory information. MDM is a brief summary, contradictory or erroneous seeming information should be clarified and full note should be reviewed. Vital Signs: Vital signs: Vital Signs Temperature 98.2 F 07/26/21 17:20 Pulse Rate 101 H 07/26/21 17:20 Respiratory Rate 17 07/26/21 17:20 Blood Pressure 143/96 07/26/21 17:20 Pulse Oximetry 96 07/26/21 17:20 MDM - Chest Pain Medical Decision Making 81-year-old gentleman without significant past medical history presenting with chest pain which is atypical for him. Proceeded by diarrhea however does have some typical cardiac features including shortness of breath and nausea. Admitted for moderate risk heart score chest pain for stress test. Medical Records I reviewed the patient's medical records. Lab Data I reviewed the patient's lab results. : 07/25/21 14:01 07/26/21 04:47 Radiology Impressions Chest X-Ray 07/25/21 13:43 IMPRESSION: Unremarkable chest radiograph. Laboratory Results WBC 8.3 10^3/uL (4.0-10.0) 07/25/21 14:01 RBC 5.01 10^6/uL (4.1-5.3) 07/25/21 14:01 Hgb 16.4 g/dL (11.7-16.6) 07/25/21 14:01 Hct 47.6 % (42.0-52.0) 07/25/21 14:01 MCV 95.0 fl (80-94) H 07/25/21 14:01 MCH 32.7 pg (28.0-34.0) 07/25/21 14:01 MCHC 34.5 g/dL (30.0-36.0) 07/25/21 14:01 RDW 12.1 % (12.1-15.1) 07/25/21 14:01 Plt Count 196 10^3/cmm (130-400) 07/25/21 14:01 MPV 9.9 fL (7.4-10.4) 07/25/21 14:01 Neut % (Auto) 85.0 % 07/25/21 14:01 Lymph % (Auto) 8.5 % 07/25/21 14:01 Callaway % (Auto) 6.2 % 07/25/21 14:01 Eos % (Auto) 0.0 % 07/25/21 14:01 Baso % (Auto) 0.1 % 07/25/21 14:01 Neut # (Auto) 7.01 10^3/uL (1.8-7.7) 07/25/21 14:01 Lymph # (Auto) 0.7 10^3/uL (0.8-4.8) L 07/25/21 14:01 Callaway # (Auto) 0.5 10^3/uL (0.2-0.9) 07/25/21 14:01 Eos # (Auto) 0.0 10^3/uL (0.0-0.8) 07/25/21 14:01 Baso # (Auto) 0.0 10^3/uL (0.0-0.1) 07/25/21 14:01 Nucleated RBC % (auto) 0 % 07/25/21 14:01 Nucleated RBCs # 0.0 /100WBC 07/25/21 14:01 Sodium 137 mmol/L (136-145) 07/25/21 14:01 Potassium 4.1 mmol/L (3.5-5.1) 07/25/21 14:01 Chloride 105 mmol/L (98-107) 07/25/21 14:01 Carbon Dioxide 20 mmol/L (22-29) L 07/25/21 14:01 Anion Gap 16.1 (5-19) 07/25/21 14:01 BUN 26 mg/dL (8-23) H 07/25/21 14:01 Creatinine 1.0 mg/dL (0.7-1.2) 07/25/21 14:01 GFR Calculation Not Reportable 07/25/21 14:01 Glucose 109 mg/dL (65-115) 07/25/21 14:01 Calculated Osmolality 289 mOsm/kg (285-295) 07/25/21 14:01 Calcium 9.2 mg/dL (8.5-10.5) 07/25/21 14:01 Magnesium 2.0 mg/dL (1.7-2.3) 07/25/21 14:01 Total Bilirubin 0.7 mg/dL (0.15-1.2) 07/25/21 14:01 AST 22 U/L (0-40) 07/25/21 14:01 ALT 16 U/L (0-41) 07/25/21 14:01 Alkaline Phosphatase 60 IU/L (40-130) 07/25/21 14:01 Troponin T Baseline 12 ng/L (0-15) 07/25/21 14:01 Troponin T 120 Minute 12.62 ng/L (0-15) 07/25/21 16:37 Delta Troponin T 0.62 ABS# (0-10) 07/25/21 16:37 NT-Pro-B Natriuret Pep 58 pg/mL (0-450) 07/25/21 14:01 Total Protein 7.1 g/dL (6.6-8.7) 07/25/21 14:01 Albumin 4.4 g/dL (3.5-5.2) 07/25/21 14:01 Globulin 2.7 g/dL (1.3-4.6) 07/25/21 14:01 Lipase 27 U/L (13-60) 07/25/21 14:01 Influenza Type A Ag Negative (Negative) 07/25/21 14:22 Influenza Type B Ag Negative (Negative) 07/25/21 14:22 SARS-CoV-2 Ag (Rapid) Negative (Negative) 07/25/21 14:22 Discharge Plan Discharge Patient Disposition: Placed in Observation Admit Provider: Gaby Melgoza Clinical Impression: Chest pain Discharge Diet: Cardiac Discharge Activity: Resume usual activity Coding Level of Care Code ED Home Care Manager Rn for Ann Ledezma
--- NOTE | 2021-07-25 13:43 | ECG_ITS ---
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 Measurements Intervals [place] Rate: 80 P: 66 GA: 180 QRS: 59 QRSD: 104 T: 51 QT: 367 QTc: 424 Interpretive Statements SINUS RHYTHM Compared to ECG 07/25/2021 13:36:50 Atrial flutter no longer present Electronically Signed On 07-25-2021 17:09:06 CDT by Leroy Yoder M.D. [email or web address].Lending Clubtallahatchie general hospitalForsitecdunlap memorial hospital.Songvice/store/OM/[id number]
--- NOTE | 2021-07-25 13:43 | XR_ITS ---
WS: [id number] Exam: XR chest 1V portable [id number] Date/Time of Exam: 07/25/2021 1:43 PM Reason For Exam: chest pain Comparison 11/26/2019. Findings: The lungs are clear and fully expanded. Costophrenic angles are sharp. No infiltrates. Bronchovascula r relief appears normal. Cardiac silhouette is unremarkable. Bony elements are intact. XR/XR chest 1V portable [id number] IMPRESSION: Unremarkable chest radiograph.
[2021-07-25] MEDS: aspirin 81 mg Chew Tablet 324 MG PO (13:58)
[2021-07-25 14:29] LABS: Basophils % 0.1 %; Hematocrit 47.6 % (42.0-52.0); Hemoglobin 16.4 g/dL (11.7-16.6); Lymphocytes # 0.7 10^3/uL (0.8-4.8); Lymphocytes % 8.5 %; Mean Corpuscular HGB Conc 34.5 g/dL (30.0-36.0); Mean Corpuscular Hemoglobin 32.7 pg (28.0-34.0); Mean Platelet Volume 9.9 fL (7.4-10.4); Monocytes # 0.5 10^3/uL (0.2-0.9); Monocytes % 6.2 %; Neutrophils # 7.01 10^3/uL (1.8-7.7); Nucleated Red Blood Cells % 0 %; Platelet Count 196 10^3/cmm (130-400); Red Blood Count 5.01 10^6/uL (4.1-5.3); Red Cell Distribution Width 12.1 % (12.1-15.1); White Blood Count 8.3 10^3/uL (4.0-10.0)
[2021-07-25 15:04] LABS: Influenza A by IFA Negative (Negative); Influenza B by IFA Negative (Negative); SARS Covid-2 Antigen Negative (Negative)
[2021-07-25 15:07] LABS: Troponin(5th) Baseline 12 ng/L (0-15)
[2021-07-25 15:16] LABS: Alanine Aminotransferase 16 U/L (0-41); Albumin Level 4.4 g/dL (3.5-5.2); Alkaline Phosphatase 60 IU/L (40-130); Aspartate Amino Transferase 22 U/L (0-40); Blood Urea Nitrogen 26 mg/dL (8-23); Calcium 9.2 mg/dL (8.5-10.5); Carbon Dioxide 20 mmol/L (22-29); Chloride 105 mmol/L (98-107); Globulin 2.7 g/dL (1.3-4.6); Glucose 109 mg/dL (65-115); Lipase 27 U/L (13-60); NT Pro B Type Natriuretic Pept 58 pg/mL (0-450); Osmolality Calculated 289 mOsm/kg (285-295); Sodium 137 mmol/L (136-145); Total Bilirubin 0.7 mg/dL (0.15-1.2); Total Protein 7.1 g/dL (6.6-8.7)
[2021-07-25 15:17] LABS: Anion Gap 16.1 (5-19); Potassium 4.1 mmol/L (3.5-5.1)
--- NOTE | 2021-07-25 15:43 | ECG_ITS ---
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 Measurements Intervals [place] Rate: 101 P: [place]: QRS: 82 QRSD: 92 T: 63 QT: 337 QTc: 437 Interpretive Statements Sinus rhythm with occasional premature atrial contractions ABNORMAL RHYTHM ECG Compared to ECG 11/25/2019 02:43:11 PACs are new Electronically Signed On 07-25-2021 17:18:30 CDT by Leroy Yoder M.D. https://[employer].Emergency CallWorkspromedica defiance [facility] hospital.[employer]/store/OM/[id number]
[2021-07-25] MEDS: sodium chloride 0.9% 1,000 ML 999 ML IV (16:34)
[2021-07-25 17:19] LABS: Troponin 5 2HR 12.62 ng/L (0-15)
[2021-07-25 17:30] LABS: Troponin 5 2HR Delta 0.62 ABS# (0-10)
--- NOTE | 2021-07-25 19:43 | ECG_ITS ---
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 Measurements Intervals [place] Rate: 83 P: 69 NM: 183 QRS: 75 QRSD: 97 T: 58 QT: 368 QTc: 434 Interpretive Statements SINUS RHYTHM Compared to ECG 07/25/2021 14:06:30 No significant changes Electronically Signed On 07-25-2021 17:18:53 CDT by Leroy Yoder M.D. [email or web address].Numerexyalobusha general hospitalSaset Healthcarest. [facility].Gifi/store/OM/[id number]/[id number]
--- NOTE | 2021-07-25 20:38 | PC.NURSE ---
ADMIT NOTE Pt received to room from ER at 2019. Alert and oriented. Denies any chest pain at this time. Says no hstory of chest pain. Does report some recent SOB with exertion. Says he started having some diarrhea last night and continued into today. No abd pain or tenderness. Telemetry applied. PIID intact to right ac area. RN to complete admission assessment. Pt is to have stress test in the am and is aware of NPO except water after midnight.
[2021-07-25 21:19] LABS: Troponin 5 6HR 13.11 ng/L (0-15)
[2021-07-25 21:36] LABS: Troponin 5 6HR Delta 1.11 ng/L (0-12)
--- NOTE | 2021-07-25 22:25 | ECG_ITS ---
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 Interpretive Statements NAME OF STUDY: LEXISCAN SESTAMIBI STRESS TEST INDICATION: Chest Pain PROCEDURE: At the baseline, the EKG revealed normal sinus rhythm with a normal ST Ts. The baseline blood pressure was 130/75 mm Hg with a heart rate of 66 beats/min. Lexiscan was infused over a period of 20 seconds. A total of 0.4 milligrams of Lexiscan was infused. The stress phase was continued for a total of 5 minutes. Heart rate at the end of the stress phase was 87 with a blood pressure 157/77. The EKG at the peak infusion revealed no significant changes. Sestamibi was injected 20 seconds after the Lexiscan infusion. Blood pressure at the end of the recovery phase was 133/72 with a heart rate of 78 per minute. CONCLUSION: 1. No significant EKG changes with the LexiScan infusion 2. No LexiScan induced chest pain or cardiac arrhythmia 3. Normal blood pressure and heart rate response 4. Sestamibi/sestamibi perfusion scan pending; see separate report. Electronically Signed On 07-27-2021 14:58:40 CDT by Tashia Luther M.D. [id number]
--- NOTE | 2021-07-25 22:29 | ECG_ITS ---
[facility] Test Date: 2021-07-25 Pat Name: Iron Naqvi Department: Room: 253 Gender: Male Manager Legal: : 1940 Requested By: Gaby Melgoza Order Number: [id number] Solis MD: Tashia Luther M.D. Measurements Intervals [place] Rate: 84 P: 66 CT: 203 QRS: 79 QRSD: 110 T: 70 QT: 368 QTc: 436 Interpretive Statements SINUS RHYTHM Compared to ECG 07/25/2021 15:45:19 No significant changes Electronically Signed On 07-27-2021 10:47:24 CDT by Tashia Luther M.D. [email or web address].Asthmatrackermississippi state hospitalMaventavita health system ont[facility].[employer]/store/OM/[id number]/[id number]
--- NOTE | 2021-07-25 22:29 | PM.HP ---
Providers/Chief Complaint Admitting Physician: Gaby Melgoza MD Primary Care Provider: Paresh Holland MD Chief Complaint: Chest Pain History of Present Illness Iron Naqvi is a 81 year old male w/ no significant PMH came to the ED c/o anteriorChest Pain sine noon today. The CP was across front of his chest, moderate intensity, radiatin to both arm. At the time of CP he was resting. It was associated w/ mild SOB but no diaphoresis, dizziness. Pt states he multiple episodes of watery diarrhea. Had last BM at 5 am. Denied abdominal pain, N/V, F/CHis CP had resolved by th shortly after coming to the ED. Pt is being admitted for Chest Pain Acute Gastroenteritis Review of Systems Narrative: HEENT: Denied HUFFMAN, sore throat, rhinorrhea CVS: positive for Chest Pain. Denied SOB Resp: Denied SOB, cough Abd: denied pain, constip, diarrhea : denied dysuria, frequency CATERING SOUS CHEF: denied HUFFMAN, weakness, Sz, Medications/Allergies Home Medications Medication Instructions Recorded Confirmed Last Taken Type ascorbic acid (vitamin C) 500 mg 500 mg PO DAILY 11/11/19 07/25/21 07/25/21 History tablet (Vitamin C) aspirin 81 mg chewable tablet 81 mg PO DAILY 11/11/19 07/25/21 07/25/21 History calcium carbonate 600 mg calcium 600 mg PO DAILY 11/11/19 07/25/21 07/25/21 History (1,500 mg) tablet (Calcium) multivitamin 1 tab PO DAILY 07/25/21 07/25/21 07/25/21 History Allergies Allergy/AdvReac Type Severity Reaction Status Date / Time No Known Allergies Allergy Verified 07/25/21 14:40 PFSH Acute PFSH: Medical History (Updated 07/25/21 @ 18:03 by Adriano Turpin MD) 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 Surgical History History of total left knee replacement (TKR) Family History Father CAD (coronary artery disease) Social History Smoking and tobacco status: former smoker Alcohol intake: never Marital status: 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 Vitals/I&O/Wt Last Vital Signs Pulse 75 07/25/21 19:18 Resp 17 07/25/21 19:18 BP 132/74 07/25/21 19:18 Pulse Ox 93 07/25/21 19:18 07/25/21 07/25/21 07/25/21 06:59 14:59 22:59 Intake Total 1000 / 1000 Balance 1000 / 1000 Weight last 48 hrs Weight 72.575 kg Weight 77.111 kg Physical Exam Narrative: HEENT: EOMI, PERLLA, Thr (-), Nose (-) Neck: supple, Thy (-), Bruit (-) CVS: S1S2, RRR, Mur (-) Resp: CTA Abd: soft, NT, BS, HSM (-) Edema (-) CATERING SOUS CHEF: A&Ox4, Non focal Data : 07/25/21 14:01 07/26/21 04:47 A&P Assessment and plan (1) Chest pain: Very likely Atypical but will r/o ACS Status: Acute Plan Kathleen x4 ECG Asa 81 mg qd NM Stress Test Lovenox DVT Prophylaxis Protonix GI prophylaxis Attestations Medical Necessity Statement*: Pt here w/ Chest pain will need to r/o ACS. Will require hospitalization for further evaluation and management Time Spent in Patient Care: 55 min Coding Level of Care Code Acute Physician Practice Coordinator for Ann Ledezma Diagnoses Chest pain R07.9
[2021-07-25 23:05] LABS: Anion Gap 15.7 (5-19); Blood Urea Nitrogen 23 mg/dL (8-23); Calcium 9.2 mg/dL (8.5-10.5); Carbon Dioxide 21 mmol/L (22-29); Chloride 105 mmol/L (98-107); Glucose 100 mg/dL (65-115); Osmolality Calculated 290 mOsm/kg (285-295); Potassium 3.7 mmol/L (3.5-5.1); Sodium 138 mmol/L (136-145)
[2021-07-25] MEDS: enoxaparin 40 mg/0.4 mL Syringe SUBCUT (23:13)
[2021-07-26] VITALS (8 sets, daily range): BP systolic 130–146; BP diastolic 68–96; PULSE 62–101; RESP 17–18; TEMP 36.4–36.8; O2SAT 93–97
--- NOTE | 2021-07-26 00:29 | ECG_ITS ---
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 Measurements Intervals [place] Rate: 84 P: 65 MI: 188 QRS: 79 QRSD: 112 T: 71 QT: 372 QTc: 440 Interpretive Statements SINUS RHYTHM MODERATE INTRAVENTRICULAR CONDUCTION DELAY [110+ ms QRS DURATION] Compared to ECG 07/25/2021 21:48:25 Intraventricular conduction delay now present Electronically Signed On 07-27-2021 13:46:41 CDT by Tashia Luther M.D. [email or web address].Pluribus Networksmemorial health system [facility].Overflow Cafe/store/OM/[id number]
--- NOTE | 2021-07-26 04:29 | ECG_ITS ---
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 Measurements Intervals [place] Rate: 70 P: 59 UT: 190 QRS: 55 QRSD: 109 T: 65 QT: 381 QTc: 412 Interpretive Statements SINUS RHYTHM Compared to ECG 07/26/2021 00:37:11 Intraventricular conduction delay no longer present Electronically Signed On 07-27-2021 13:49:56 CDT by Tashia Luther M.D. https://[employer].ComAbilitysharkey issaquena community hospitalTrueFacetbarberton citizens hospitalZigmo/store/OM/[id number]/[id number]
[2021-07-26 06:08] LABS: Anion Gap 14.6 (5-19); Blood Urea Nitrogen 21 mg/dL (8-23); Calcium 8.8 mg/dL (8.5-10.5); Carbon Dioxide 18 mmol/L (22-29); Chloride 109 mmol/L (98-107); Glucose 100 mg/dL (65-115); Osmolality Calculated 289 mOsm/kg (285-295); Potassium 3.6 mmol/L (3.5-5.1); Sodium 138 mmol/L (136-145)
--- NOTE | 2021-07-26 06:23 | PC.NURSE ---
SHIFT SUMMARY Has had no c/o chest pain since admission. NPO after midnight except for water. To have stress test today
[2021-07-26] MEDS: regadenoson 0.4 Mg/5 ml Syringe IVP (10:50)
--- NOTE | 2021-07-26 11:09 | PC.CHAP ---
Pastoral Care Encounter/Spiritual Assessment Type of Contact [] Declined analytical lab technician visit [] Patient/Family/Request visit [] Outpatient visit [] Follow-up visit [] Physician referral [] Code/Alert [x] Routine visit [] Staff referral [] Actively dying [] Patient sleeping [] Family support [] [] Out of room [] Palliative care [] [x] Receiving care in room [] Pre-surgical visit [] Trauma [] Long length of stay [] ICU visit [] Other: Relational/Emotional Strength [x] Patient feels connected with others/family/visitors/staff [] Distress [] Loneliness/isolation [] Abandonment Spirituality of Patient [x] Person of Kala [] Attends Rastafarian of their Kala [x] Believes in Prayer [] Reads Bible or Hoahaoism materials [] There are Spiritual issues to be addressed [place] Interventions [x] Prayer [x] Active listening [x] Non-anxious presence [x] Spiritual/emotional support [] Crisis/trauma care [x] Spiritual counseling [] Bereavement support [] Provided bereavement packet [] Provided Bible/devotional materials [] Provided toy/stuffed animal, coloring book to patient or family member [] Provided Communion [] Anointing/[place] [] Salvation [x] Completed spiritual assessment [] Other: Impact on Illness or Injury [] Angry [] Fearful [] Anxious [] Often cries [] Exhaustion [] Unable to work [] Unable to attend jehovah's witness [] Unable to walk/stand [] Unable to read [] Unable to drive [] Unable to eat/drink [] Unable to sleep [] Unable to be with family [] Patient intubated [] Other: Summary had tests is going home Time spent with patient 10 mins
--- NOTE | 2021-07-26 16:23 | PM.DCS ---
Discharge Providers Date of Admission: 07/25/21 18:03 Date of Discharge: July 26, 2021 Attending Provider at Admission: Gaby Melgoza MD Attending Provider at Discharge: Gaby Melgoza MD Primary Care Provider: Paresh Holland MD Diagnoses at Discharge Discharge Diagnosis (1) Chest pain: Status: Acute Reason for Visit Reason for Visit: Chest Pain Hospital Course Hospital Course Iron Naqvi is a 81 year old male w/ no significant PMH came to the ED c/o anteriorChest Pain sine noon today. The CP was across front of his chest, moderate intensity, radiatin to both arm. At the time of CP he was resting. It was associated w/ mild SOB but no diaphoresis, dizziness. Pt states he multiple episodes of watery diarrhea. Had last BM at 5 am. Denied abdominal pain, N/V, F/CHis CP had resolved by th shortly after coming to the ED. Pt is being admitted for Chest Pain Acute Gastroenteritis Pt was admitted to medsur unit under telemetry. His chest pain had resolved after coming to the floor. His Kathleen and Ecg were negative for ACS. He had a NM Cardiac Stress test showing scarring in inferolateral myocardium w. subtle ischemic changes in RCA territory. His VSS were stable. His CP was atypical possibly from GERD. He will continue Pepcid started her. F/U w/ his PMD. Physical Exam Narrative: HEENT: EOMI, PERLLA, Thr (-), Nose (-) Neck: supple, Thy (-), Bruit (-) CVS: S1S2, RRR, Mur (-) Resp: CTA Abd: soft, NT, BS, HSM (-) Edema (-) MANAGER ENGINE: A&Ox4, Non focal Discharge Data Studies Completed and Pending Completed Studies During Hospitalization Category Date Time Status Sestamibi Stress Test Request Routine Exams 07/25/21 22:25 Draft XR chest 1V portable [id number] Stat Exams 07/25/21 13:43 Completed NM mike perf SPECT r/s* [id number] Routine Nuc Med 07/26/21 22:25 Completed Radiology Impressions Chest X-Ray 07/25/21 13:43 IMPRESSION: Unremarkable chest radiograph. Laboratory Results WBC 8.3 10^3/uL (4.0-10.0) 07/25/21 14:01 RBC 5.01 10^6/uL (4.1-5.3) 07/25/21 14:01 Hgb 16.4 g/dL (11.7-16.6) 07/25/21 14:01 Hct 47.6 % (42.0-52.0) 07/25/21 14:01 MCV 95.0 fl (80-94) H 07/25/21 14:01 MCH 32.7 pg (28.0-34.0) 07/25/21 14:01 MCHC 34.5 g/dL (30.0-36.0) 07/25/21 14:01 RDW 12.1 % (12.1-15.1) 07/25/21 14:01 Plt Count 196 10^3/cmm (130-400) 07/25/21 14:01 MPV 9.9 fL (7.4-10.4) 07/25/21 14:01 Neut % (Auto) 85.0 % 07/25/21 14:01 Lymph % (Auto) 8.5 % 07/25/21 14:01 [place] % (Auto) 6.2 % 07/25/21 14:01 Eos % (Auto) 0.0 % 07/25/21 14:01 Baso % (Auto) 0.1 % 07/25/21 14:01 Neut # (Auto) 7.01 10^3/uL (1.8-7.7) 07/25/21 14:01 Lymph # (Auto) 0.7 10^3/uL (0.8-4.8) L 07/25/21 14:01 [place] # (Auto) 0.5 10^3/uL (0.2-0.9) 07/25/21 14:01 Eos # (Auto) 0.0 10^3/uL (0.0-0.8) 07/25/21 14:01 Baso # (Auto) 0.0 10^3/uL (0.0-0.1) 07/25/21 14:01 Nucleated RBC % (auto) 0 % 07/25/21 14:01 Nucleated RBCs # 0.0 /100WBC 07/25/21 14:01 Sodium 138 mmol/L (136-145) 07/26/21 04:47 Potassium 3.6 mmol/L (3.5-5.1) 07/26/21 04:47 Chloride 109 mmol/L (98-107) H 07/26/21 04:47 Carbon Dioxide 18 mmol/L (22-29) L 07/26/21 04:47 Anion Gap 14.6 (5-19) 07/26/21 04:47 BUN 21 mg/dL (8-23) 07/26/21 04:47 Creatinine 0.7 mg/dL (0.7-1.2) 07/26/21 04:47 GFR Calculation Not Reportable 07/26/21 04:47 Glucose 100 mg/dL (65-115) 07/26/21 04:47 Calculated Osmolality 289 mOsm/kg (285-295) 07/26/21 04:47 Calcium 8.8 mg/dL (8.5-10.5) 07/26/21 04:47 Magnesium 2.0 mg/dL (1.7-2.3) 07/25/21 14:01 Total Bilirubin 0.7 mg/dL (0.15-1.2) 07/25/21 14:01 AST 22 U/L (0-40) 07/25/21 14:01 ALT 16 U/L (0-41) 07/25/21 14:01 Alkaline Phosphatase 60 IU/L (40-130) 07/25/21 14:01 Troponin T Baseline 12 ng/L (0-15) 07/25/21 14:01 Troponin T 120 Minute 12.62 ng/L (0-15) 07/25/21 16:37 Delta Troponin T 0.62 ABS# (0-10) 07/25/21 16:37 Troponin T Hi Sens 6Hr 13.11 ng/L (0-15) 07/25/21 20:21 Troponin T Hi Sens 6Hr Delta 1.11 ng/L (0-12) 07/25/21 20:21 NT-Pro-B Natriuret Pep 58 pg/mL (0-450) 07/25/21 14:01 Total Protein 7.1 g/dL (6.6-8.7) 07/25/21 14:01 Albumin 4.4 g/dL (3.5-5.2) 07/25/21 14:01 Globulin 2.7 g/dL (1.3-4.6) 07/25/21 14:01 Lipase 27 U/L (13-60) 07/25/21 14:01 Influenza Type A Ag Negative (Negative) 07/25/21 14:22 Influenza Type B Ag Negative (Negative) 07/25/21 14:22 SARS-CoV-2 Ag (Rapid) Negative (Negative) 07/25/21 14:22 Additional Data from Hospital Stay NM Cardiac Stress Test: ?PERFUSION FINDINGS ?Small to moderate area of slightly decreased size of the gauze noted in the ?basal and mid inferior and mid inferoseptal regions.? Subtle area reversibility ?was noted in the basal inferior region. ?FUNCTIONAL RESULTS ? ? (calculated via Gated SPECT) ? Stress Image LV EF (%):? ? 63 ? Stress EDV (mL):95 ? TID:? 1.16 ? Stress ESV (mL):35 ?FUNCTIONAL FINDINGS: ?Segmental wall motion analysis revealing no gross wall motion normalities ?IMPRESSIONS ?1.? Myocardial perfusion imaging revealing small to moderate area of slightly ?decreased tracer uptake was noted in the inferior and inferoseptal regions, ?suggestive of myocardial scarring with a subtle area of ischemia in the ?distribution of the right coronary artery. ?2.? Normal LV ejection fraction of 63%. ?3.? LV wall motion analysis revealing no gross wall motion of normalities. ?4.? Normal LV volume. ?5.? Slightly elevated transient ischemic dilatation ratio 1.16 also may suggest ?ischemia.? Clinical correlation is recommended ?Dr Tashia Luther MD FAC ?(Electronically Signed) ?Final Date:? ? ? 26 July 2021 ? 14:05 Vitals Last Vital Signs Temp 98.2 F 07/26/21 15:39 Pulse 101 H 07/26/21 15:39 Resp 17 07/26/21 15:39 BP 143/96 07/26/21 15:39 Pulse Ox 96 07/26/21 15:39 Discharge Plan Discharge Patient Disposition: Home Condition: Stable Prescriptions: New famotidine 20 mg Tablet 20 mg PO BID 60 Days Qty: 120 0RF Continued calcium carbonate [Calcium 600] 600 mg calcium (1,500 mg) Tablet 600 mg PO DAILY 0RF ascorbic acid (vitamin C) [Vitamin C] 500 mg Tablet 500 mg PO DAILY 0RF aspirin 81 mg Tablet,Chewable 81 mg PO DAILY 0RF Multi-Daily Tablet 1 tab PO DAILY 0RF Discharge Orders: Discharge Order (Routine); Ordered 07/26/21 Ordered By: Gaby Melgoza Referrals: Paresh Holland MD [Primary Care Provider] - Discharge Diet: Cardiac Discharge Activity: Resume usual activity Patient Instructions: Opioid Safety Discharge Attestations Time Spent in Discharge Care*: greater than 30 min Quality Metrics Clinical Quality Measures [ No reported AMI, CVA or VTE this stay] Coding Level of Care Code Acute Chg FW DC note Diagnoses Chest pain R07.9
--- NOTE | 2021-07-26 22:25 | NMCV_ITS ---
NM mike perf SPECT r/s* [id number] Iron Naqvi Age: 81 Gender: M : 1940 Exam Date: 07/26/2021 10:17 Ordering Phys: Gaby Melgoza MD Technologist: ROGER Ashley Exam Location: [facility] Indications: CHEST PAIN STRESS TEST Please see separate stress test report in [facility] for full findings IMAGE PROTOCOL Rest/Stress 1 Lexiscan Day Radiopharmaceutical Dose (mCi) Administration Site Administered by Rest: Tc-99m 10.9 IV ROGER Case Sestamibi Stress:Tc-99m 32.2 IV ROGER Ashley Sestamibi Rest: 26-Jul-2021 60 Discovery 630 Stress: 26-Jul-2021 30 Discovery 630 0.4mg Lexiscan. Supine position only as patient was unable to lay prone. SPECT RESULTS Technical Quality: Excellent Raw Data Analysis: Normal Image Corrections: No attenuation or motion correction applied Summed Stress Score: 2 Summed Rest Score: 3 Summed Difference Score: 1 PERFUSION FINDINGS Small to moderate area of slightly decreased size of the gauze noted in the basal and mid inferior and mid inferoseptal regions. Subtle area reversibility was noted in the basal inferior region. FUNCTIONAL RESULTS (calculated via Gated SPECT) Stress Image LV EF (%): 63 Stress EDV (mL):95 TID: 1.16 Stress ESV (mL):35 FUNCTIONAL FINDINGS: Segmental wall motion analysis revealing no gross wall motion normalities IMPRESSIONS 1. Myocardial perfusion imaging revealing small to moderate area of slightly decreased tracer uptake was noted in the inferior and inferoseptal regions, suggestive of myocardial scarring with a subtle area of ischemia in the distribution of the right coronary artery. 2. Normal LV ejection fraction of 63%. 3. LV wall motion analysis revealing no gross wall motion of normalities. 4. Normal LV volume. 5. Slightly elevated transient ischemic dilatation ratio 1.16 also may suggest ischemia. Clinical correlation is recommended Dr Tashia Luther MD [facility] (Electronically Signed) Final Date: 26 July 2021 14:05 S
== END 2021-07-26 17:21 | disposition home or self-care (01) ==
LOC: ER 18:03 → MEDSURG 19:14
PROVIDERS: Admitting Provider Internal Medicine; Emergency Provider Emergency Medicine; PCP Family Medicine; Visit Provider Internal Medicine
DX: R07.9 Chest pain, unspecified (principal); K52.9 Noninfective gastroenteritis and colitis, unspecified; Z87.891 Personal history of nicotine dependence; Z82.49 Family history of ischemic heart disease and other diseases of the circulatory system
CPT/HCPCS: 36415; 71045; 78452; 80048; 80053; 83690; 83735; 83880; 84484; 85025; 87426; 87804; 93005; 93017; 96360; 96372; 99285; A9500; G0378; J1650; J2785; J7030

== ENCOUNTER → 2021-11-07 09:06 | Outpatient (BNVA) | payer MEDICARE, OTHER, SELFPAY | PROVIDERS: PCP Family Medicine; Visit Provider Family Medicine | DX: N39.0 Urinary tract infection, site not specified (principal); K29.70 Gastritis, unspecified, without bleeding; R53.83 Other fatigue | CPT/HCPCS: 80053; 83880; 85025 ==

== ENCOUNTER → 2022-03-20 14:18 | Outpatient (BNVA) | payer MEDICARE, OTHER, SELFPAY | PROVIDERS: PCP Family Medicine; Visit Provider Orthopaedic Surgery | DX: M67.911 Unspecified disorder of synovium and tendon, right shoulder (principal) | CPT/HCPCS: 73030; 99213; J0702; J3301; J3490 ==

== ENCOUNTER → 2022-07-02 12:54 | Outpatient (BNVA) | payer MEDICARE, OTHER, SELFPAY | PROVIDERS: PCP Family Medicine; Visit Provider Orthopaedic Surgery | DX: M67.912 Unspecified disorder of synovium and tendon, left shoulder (principal); M67.911 Unspecified disorder of synovium and tendon, right shoulder | CPT/HCPCS: 99212; J0702; J3490 ==

== ENCOUNTER → 2024-06-30 08:04 | Outpatient (BNVA) | payer MEDICARE, OTHER, SELFPAY | PROVIDERS: PCP Family Medicine; Visit Provider Student in an Organized Health Care Education/Training Program | DX: M16.12 Unilateral primary osteoarthritis, left hip (principal); M25.552 Pain in left hip; M70.62 Trochanteric bursitis, left hip | CPT/HCPCS: 73502; 99204 ==

== ENCOUNTER → 2024-07-16 07:46 | Outpatient (BNVA) | payer MEDICARE, OTHER, SELFPAY | PROVIDERS: PCP Family Medicine; Visit Provider Student in an Organized Health Care Education/Training Program | DX: M16.12 Unilateral primary osteoarthritis, left hip (principal) | CPT/HCPCS: 20610; 77002; J3301; J9999 ==

== ENCOUNTER → 2024-10-20 07:45 | Outpatient (BNVA) | payer MEDICARE, OTHER, SELFPAY | PROVIDERS: PCP Family Medicine; Visit Provider Student in an Organized Health Care Education/Training Program | DX: M16.12 Unilateral primary osteoarthritis, left hip (principal) | CPT/HCPCS: 99213 ==

== ENCOUNTER → 2024-11-19 12:34 | Outpatient (BNVA) | payer MEDICARE, OTHER, SELFPAY | PROVIDERS: PCP Family Medicine; Visit Provider Student in an Organized Health Care Education/Training Program | DX: M70.62 Trochanteric bursitis, left hip (principal); M16.12 Unilateral primary osteoarthritis, left hip | CPT/HCPCS: 20610; 77002; J3301; J9999 ==

== ENCOUNTER → 2025-02-22 14:04 | Outpatient (BNVA) | payer MEDICARE, OTHER, SELFPAY | PROVIDERS: PCP Family Medicine; Visit Provider Physician Assistant | DX: M16.12 Unilateral primary osteoarthritis, left hip (principal); M79.661 Pain in right lower leg | CPT/HCPCS: 99213 ==

== ENCOUNTER 2025-02-25 10:43 | Outpatient (CLI) | payer MEDICARE, OTHER, SELFPAY ==
--- NOTE | 2025-02-25 11:30 | USCV_ITS ---
DrissCm Age: 84 Gender: M : 1940 Exam Date: 02/25/2025 10:52 Ordering Phys: [place] Stewart Technologist: SAVANA Exam Location: [facility] Indication: right leg pain HISTORY: Lower extremity swelling-RIGHT PROCEDURES: Venous duplex imaging was performed in only the right lower extremity. The following venous structures were evaluated: common femoral vein, profunda vein, proximal portion of the greater saphenous vein, superficial femoral vein, and the popliteal vein. In addition, the posterior tibial and peroneal trunk were evaluated. FINDINGS: Normal 2-D Doppler and augmentation and compressibility throughout the lower extremity venous structures. Additional imaging through the proximal calf veins also reveals no thrombus. Limited evaluation of the greater saphenous vein is patent with no thrombus. CONCLUSIONS No DVT right lower extremity. Dr. Jasmyne Griffin DO (Electronically Signed) Final Date: 25 February 2025 12:52 S
== END 2025-02-25 10:44 | disposition home or self-care (01) ==
PROVIDERS: PCP Family Medicine; Visit Provider Physician Assistant
DX: M79.661 Pain in right lower leg (principal)
CPT/HCPCS: 93971

== ENCOUNTER → 2025-03-18 09:07 | Outpatient (BNVA) | payer MEDICARE, OTHER, SELFPAY | PROVIDERS: PCP Family Medicine; Visit Provider Student in an Organized Health Care Education/Training Program | DX: M70.62 Trochanteric bursitis, left hip (principal); M16.12 Unilateral primary osteoarthritis, left hip; Z71.89 Other specified counseling | CPT/HCPCS: 20610; 77002; J3301; J9999 ==